=== PATIENT | male | born 1970 | race Caucasian/White ===

== ENCOUNTER → 2018-01-07 | Outpatient (CLI) | payer OTHER ==
[~2018-01-07] MED LIST: LISI-729 PO; OMEP20CA59 PO
--- NOTE | 2018-01-07 14:56 | DIAGNOSTIC IMAGING REPORT ---
SHOULDER 3 VIEWS HISTORY: Left shoulder pain COMPARISON: None. FINDINGS: There is no fracture or dislocation. The left clavicle is intact. Punctate calcification adjacent to the humeral head consistent with supraspinatus calcific tendinitis. No radiopaque foreign bodies. IMPRESSION: 1. No fracture or dislocation within the left shoulder. 2. Supraspinatus calcific tendinitis. Electronically signed by: Rob Trejo M.D. 01/07/2018 2:54 PM Dictated Date/Time: 01/07/2018 2:50 PM
== END | disposition home or self-care (01) ==
LOC: C.RAD1850 14:41
PROVIDERS: ATTEND Family Medicine
DX: M75.32 Calcific tendinitis of left shoulder (principal)

== ENCOUNTER 2024-08-09 16:02 | Inpatient (IN) ==
--- NOTE | 2024-08-09 16:06 | ED Triage Note ---
Date of Service August 09, 2024 Provider in Triage Author: Ankita Tomlinson History of Present Illness This patient was briefly evaluated while in triage. An abbreviated physical exam was performed. This patient is a 54-year-old Male who presents to the ED for evaluation hx of HTN, dyslipidemia, WPW chest pressure, sensation in throat, palpitations, dizziness started 1 hour [employer] Physical Exam GENERAL: NAD, VSS CARDIOVASCULAR: tachycardic, irregular RESPIRATORY: CTA ABDOMEN: BS x 4. Nontender to palpation. Initial orders for labs and / or imaging were placed and patient was placed in the waiting area until a bed is available. Please see further documentation for the full ED course.
[2024-08-09] MEDS: ADENOSINE IV SOLN 3 MG/ML 2 ML VIAL IV STA (16:26)
--- NOTE | 2024-08-09 16:28 | XRay Report ---
EXAM: Radiograph of the Chest 1 View INDICATION: Heart palpitations 1 hour ago. Chest pressure. TECHNIQUE: Frontal view of the chest. COMPARISON: 02/22/2024 FINDINGS: Lungs and pleural spaces: No consolidation or pulmonary edema. No pleural effusion or pneumothorax. Heart: Stable prominent cardiac shadow. Mediastinum: Normal contour. Bones/joints: No fracture, erosion or dislocation. Soft tissues: No abnormality noted. No radiopaque foreign body noted. Upper abdomen: No abnormality noted. IMPRESSION: No acute cardiopulmonary disease. ACT 112: Negative or not required by law. Electronically signed by Penny Baker 08-09-2024 4:28 PM
[2024-08-09] MEDS: SODIUM CHLORIDE 0.9% 1,000 ML IV ONE ×2 (16:30→23:19)
[2024-08-09] MEDS: ADENOSINE IV SOLN 3 MG/ML 2 ML VIAL IV ONE ×2 (16:30→16:34)
[2024-08-09 16:38] LABS: Basophils % (auto) 0.8 %; Eosinophils # (auto) 0.52 K/uL (0.00-0.50); Eosinophils % (auto) 4.1 %; Hematocrit (blood only) 48.8 % (42.0-52.0); Hemoglobin 16.9 g/dl (14.0-18.0); Immature Granulocytes # (auto) 0.04 K/uL (0.01-0.20); Immature Granulocytes % (auto) 0.3 %; Lymphocytes # (auto) 4.31 K/uL (1.20-3.40); Lymphocytes % (auto) 34.2 %; Mean Corpuscular Hemoglobin 32.3 pg (25.0-34.0); Mean Corpuscular Hgb Conc 34.6 g/dL (32.0-36.0); Mean Corpuscular Volume 93.1 fL (80.0-100.0); Mean Platelet Volume 9.7 fL (9.4-12.4); Monocytes # (auto) 1.13 K/uL (0.11-0.59); Neutrophils % (auto) 51.6 %; Platelet Count 258 K/uL (130-400); RDW Coefficient of Variation 13.4 % (11.5-14.5); RDW Standard Deviation 45.9 fL (36.4-46.3); Red Blood Count 5.24 M/uL (4.70-6.10)
[2024-08-09] MEDS: METOPROLOL TARTRATE 1 MG/ML VIAL IV ONE (16:39)
[2024-08-09] MEDS: METOPROLOL TARTRATE 1 MG/ML VIAL IV STA ×3 (16:45→16:56)
[2024-08-09] MEDS: ASPIRIN 81 MG CHEW PO STA (16:51)
[2024-08-09 16:56] LABS: Alanine Aminotransferase 40 U/L (7-52); Albumin Globulin Ratio 1.7 (0.9-2); Albumin Level 4.5 gm/dl (3.4-5.0); Alkaline Phosphatase 46 U/L (34-104); Anion Gap 10 (3-11); Aspartate Aminotransferase 25 U/L (13-39); BUN Creatinine Ratio 9.3 (10-20); Bilirubin,Total 0.6 mg/dl (0.2-1.0); Blood Urea Nitrogen 10 mg/dl (6-23); Calcium 9.1 mg/dl (8.6-10.3); Carbon Dioxide 26 mmol/L (21-32); Chloride 104 mmol/L (98-107); Globulin 2.6 gm/dl (2.5-4.0); Glucose 95 mg/dl (70-99(Fasting)); Magnesium 1.8 mg/dl (1.7-2.4); Potassium 3.7 mmol/L (3.5-5.1); Sodium 140 mmol/L (136-145); Total Protein 7.1 gm/dl (6.0-8.3)
[2024-08-09 17:02] LABS: Troponin I High Sensitivity 7.1 pg/ml (0-20)
[2024-08-09 17:11] LABS: Thyroid Stimulating Hormone 7.608 uIu/ml (0.300-4.500)
[2024-08-09 17:19] LABS: INR 0.9 (0.9-1.1); Partial Thromboplastin Time 27 Seconds (21-31); Prothrombin Time 10.3 Seconds (9.0-12.0)
[2024-08-09] MEDS: PROCAINAMIDE IV STA (17:47)
[2024-08-09] MEDS: SODIUM CHLORIDE 0.9% IV STA (17:47)
[2024-08-09 17:48] LABS: T4 Free Thyroxine 0.74 ng/dl (0.61-1.60)
[2024-08-09] MEDS: HEPARIN SODIUM/DEXTROSE 25,000 UNITS/500 ML BAG IV SCH (18:35)
--- NOTE | 2024-08-09 18:38 | History & Physical Report ---
Date of Service August 09, 2024 Assessment & Plan (1) Pre-excited atrial fibrillation: Plan: Reviewed cardiology note from [facility] 2020. Was diagnosed with WPW in 2011. Stress test did not elicit any arrhythmia the patient did not have loss of the anterograde conduction. No syncopal symptoms. Risk/benefits of ablation were discussed however patient ultimately chose to defer this. He had not had any episodes of SVT at that time. Did have some episodes of palpitations when mowing his lawn which resolved completely after he was started on metoprolol. No history of A-fib, EKG sinus at that time. Patient presents with acute wide-complex tachycardia, initial rates [id number]. In the ER was given adenosine 6 x 12 x 18 without conversion. Received metoprolol 5 mg x 3 and then was subsequently started on procainamide after consultation with cardiology history of WPW/preexcitation. Rates improved to 140s, BP improved from 8090 systolic to 217850/6080 following this. Current rhythm is A-fib with preexcitation as his underlying rhythm. He has been started on heparin GTT. He has not been anticoagulated in the past however did have abrupt onset of his symptoms which began today at 1330 hours. Troponin is normal, no chest pain chest pressure at time of hospitalist assessment Admitted to the ICU for every [id number] vital checks given multiple rate control boluses, procainamide load, and possible need for electrical cardioversion. Due to hypotension procainamide 1500mg load is being given over 150 minutes (rather than typical 75 minute load). Reviewed with cardiology. Ideally preexcitation pathway will be blocked and QRS should narrow. After load low risk of VF/VT degeneration, risk was highest with initial AV nuha block. If following procaine QRS narrows could consider additional AV nuha blocking agents at that time. After load which has been extended over 150 minutes is complete continue 2 mg/h continuous infusion. If patient does not convert or improve by morning then we will target cardioversion, n.p.o. at midnight. If patient becomes hemodynamically unstable then will need emergent electrocardioversion at that time. Appreciate recommendations Heparin GTT continued Cardiology consulted Magnesium 1.8, optimize to 2.0 magnesium x 1 given (2) WPW (Ksqrk-Gqsxuhnbe-Ybzqr syndrome): Plan: No prior history of SVT, syncope and had a normal stress test as noted above which did not elicit arrhythmia Cardiology following, see above (3) ETOH abuse: Plan: Patient drinks 6-8 beers per day. No alcohol free days in many months. Last drink 6 PM 08/08/2024 Denies history of withdrawal or seizures Is at risk of withdrawal and may have atrial arrhythmia precipitated by alcohol use Denies binge drinking in the past week AWSS protocol on admission (4) Hypertension: Plan: Valsartan, metoprolol, amlodipine held for hypotension. Resume as clinically indicated Plan DVT prophylaxis: Anticoagulated Diet: N.p.o. midnight Disposition ICU for potential cardioversion CODE STATUS: Full code History of Present Illness Primary Care Provider: Jim Cristi Hayward is a 54-year-old male with a past medical history of preexcitation/Zyrir-Gaisrzhwa-Jktgc who was evaluated but ultimately did not require ablation several years prior who presents with the acute onset of diaphoresis, palpitations, dizziness which started abruptly at approximately 1 30-1 40 5 PM this afternoon. He denies any past history of A-fib. He had some tightness/chest pressure which resolved in the ER following initial rate control. He reports that in the past week he has been in his usual state of health and before today has not had any lightheadedness, dizziness, chest pain, fever, chills, cough, shortness of breath, difficulty breathing, chest pain, chest pressure with exertion or at rest, nausea/vomiting/diarrhea, lower extremity swelling, or orthopnea. He does drink 6-8 beers per day, last alcohol free day was more than several months ago. He denies history of seizure/withdrawal, but again notes that he has not had an alcohol free day in a long time. Last drink was yesterday evening at about 6 PM. Denies recent binge drinking or drinking in excess of his usual 68 intake. He smokes 1 pack of cigarettes per day no diagnosed history of COPD and wheezes intermittently but has not had any recent wheezing. Denies to use. Denies recreational drug use. Denies sleep apnea. Full code Allergies Allergy/AdvReac Type Severity Reaction Status Date / Time naproxen Allergy Intermediate HIVES Verified 08/09/24 16:34 Home Medications Medication Instructions Recorded Confirmed Type omeprazole 20 mg capsule,delayed 20 mg PO QAM 01/21/21 08/09/24 History release amlodipine 10 mg tablet 10 mg PO QAM 11/05/22 08/09/24 History rosuvastatin 5 mg tablet 5 mg PO QAM 11/05/22 08/09/24 History metoprolol succinate 100 mg 100 mg PO QAM 08/09/24 08/09/24 History tablet,extended release 24 hr valsartan 80 mg tablet 80 mg PO QAM 08/09/24 08/09/24 History Past Med/Surg History Problem List ETOH abuse Pre-excited atrial fibrillation Hypertension Medical History Ureteral obstruction Hyperlipidemia WPW (Ljuqz-Ejuaqygvg-Iwwon syndrome) Osteoarthritis Accelerated hypertension Tobacco abuse Surgical History History of urologic surgery Family History Uncle Coronary heart disease Brother Hypertension Other Stroke Social History Smoking Status: Current every day smoker Hx Alcohol Use: No Preferred Language: [place] Hearing Ability: Normal Current Living Situation: Spouse current occupational status: employed current occupation: [employer] Feels Safe at Home: Yes Physical Exam Physical Exam: General: A&Ox3. NAD. Cooperative. HEENT: Atraumatic, normocephalic. Vision and hearing grossly intact Pulm: CTAB A&P. -wheezes, -rales, -rhonchi. Symmetrical chest rise. No increased work of breathing. No respiratory distress. Cardiac: Tachycardic, irregular. No murmur rub or gallop appreciated at time of admitting assessment. Radial pulses intact and symmetrical. Abdominal: Nontender, nondistended, soft. BS present. Extremities: Warm and dry. No edema Results & Data Results & Data Vital Signs (Past 12 Hours) Vital Signs Temp Pulse Pulse Resp BP BP Pulse Ox 08/09/24 18:21 144 H 18 94 08/09/24 18:15 126/89 08/09/24 18:15 160 H 18 96 08/09/24 18:15 136 H 20 126/89 97 12/18/24 18:03 122/64 08/09/24 18:03 157 H 18 122/64 98 08/09/24 18:03 150 H 24 08/09/24 18:00 97/66 L 08/09/24 17:57 159 H 20 97 08/09/24 17:53 165 H 20 95/79 L 95 08/09/24 17:51 157 H 20 97 08/09/24 17:45 176 H 20 95 08/09/24 17:43 104/68 08/09/24 17:36 108/79 08/09/24 17:30 166 H 16 97 08/09/24 17:24 163 H 18 95 08/09/24 17:22 110/51 L 08/09/24 17:18 172 H 17 96 08/09/24 17:16 88/56 L 08/09/24 17:12 85/40 L 08/09/24 17:06 186 H 18 93 08/09/24 17:05 185 H 08/09/24 17:00 179 H 08/09/24 17:00 187 H 18 97 08/09/24 16:54 182 H 08/09/24 16:51 88/73 L 08/09/24 16:50 170 H 08/09/24 16:45 178 H 101/73 08/09/24 16:42 98 08/09/24 16:39 178 H 19 97 08/09/24 16:39 200 H 101/73 08/09/24 16:33 98/80 L 08/09/24 16:30 180 H 13 99 08/09/24 16:26 217 H 08/09/24 16:23 136/90 08/09/24 16:21 185 H 18 98 08/09/24 16:05 36.0 C L 87 20 125/90 96 O2 Del Method 08/09/24 18:21 08/09/24 18:15 08/09/24 18:15 08/09/24 18:15 Room Air 08/09/24 18:03 08/09/24 18:03 Room Air 08/09/24 18:03 08/09/24 18:00 08/09/24 17:57 08/09/24 17:53 Room Air 08/09/24 17:51 08/09/24 17:45 08/09/24 17:43 08/09/24 17:36 08/09/24 17:30 08/09/24 17:24 08/09/24 17:22 08/09/24 17:18 08/09/24 17:16 08/09/24 17:12 08/09/24 17:06 08/09/24 17:05 08/09/24 17:00 08/09/24 17:00 08/09/24 16:54 08/09/24 16:51 08/09/24 16:50 08/09/24 16:45 08/09/24 16:42 Room Air 08/09/24 16:39 08/09/24 16:39 08/09/24 16:33 08/09/24 16:30 08/09/24 16:26 08/09/24 16:23 08/09/24 16:21 08/09/24 16:05 Room Air PG Care Time/CCT Total # of Minutes Spent Total Time Spent with Patient: Total time spent is greater than 50% in coordination of care (as documented) at patient's floor/unit and/or counseling patient: Coding Level of Care Code 81691 INT INP/OBS CARE 3/75MIN Diagnoses Pre-excited atrial fibrillation I48.91 WPW (Vnnmf-Idhplfnmk-Vqtss syndrome) I45.6 ETOH abuse F10.10 Hypertension I10
--- NOTE | 2024-08-09 18:48 | Emergency Department Note ---
Impression & Plan Pre-excited atrial fibrillation, Chest pain, Atrial fibrillation with rapid ventricular response, Mriya-Wixtknmjp-Qfzmz (WPW) pattern ED Provider Note NAME: NEAL RODAS AGE: 54 SEX: M : 1970 ARRIVES VIA: Walk-In INFORMANT: Patient ED PROVIDER(S): Yahir Herrera MD CHIEF COMPLAINT: Chest pain, palpitations/heart racing. 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 He reports feeling disoriented. The patient denies any prior history of similar episodes. He denies any history of exertional chest pain. Patient does smoke daily. He reports alcohol use on the weekends between 6-8 beers. The patient acknowledges a history of WBC W but to his understanding there was nothing to be done about it. He reports he had an echo cardiogram performed. Given that he had never had any episode of symptoms he understand that an ablation considered but deferred given he had no symptoms. Patient is on metoprolol succinate 100 mg daily. Patient denies any missed doses of his medications. He otherwise denies any recent illness including fevers, chills, cough, congestion, GI or symptoms. Of note, the patient did arrive to emergency department during time of high volume, acuity and prolonged emergency department waiting times. Critical pathways initiated from triage. Aspirin was ordered and administered. On evaluation the patient is in no acute distress, afebrile with heart rate in the 200s and wide-complex tachycardia with vital signs otherwise stable. He appears clinically dry. EKG demonstrates wide complex tachycardia with QRS of 136. Given the patient's history of similar QRS widening in 2011 with history of preexcitation/WPW suspect likely related to reentry tachycardia versus atrial fibrillation with preexcitation. Given patient is already on a beta-tito adenosine was attempted 6mg then 12mg x 2 but was unsuccessful. The patient was then given 5 mg of IV Lopressor x 3 with marginal improvement in rate to the 160s-180s. Chest x-ray negative for acute cardiopulmonary process per my preliminary independent interpretation WBC 12.6 K with out neutrophilia or left shift. H/H within normal limits. Chemistry without metabolic acidosis. Magnesium is 1.8, low normal and electrolytes otherwise unremarkable. High-sensitivity troponin 7.1, within normal limits. TSH is 7.6 with free T4 within normal limits. Blood pressure was episodically borderline though with MAPS 70-75. However the patient reported feeling improvement in his symptoms. Blood pressure gradually was more consistently improved. Patient denied feeling any lightheadedness or near syncopal symptoms. Case was discussed with Dr. Astudillo, [facility] cardiology on-call who was able to review the patient's 2012 EKG and EKGs from today. He does feel that rhythm is consistent with atrial fibrillation with preexcitation. Given the patient was now stable recommendations are for initiation of procainamide. If patient were to become hypotensive/unstable then cardioversion would be indicated. Appreciate consultation recommendations. Given new onset atrial fibrillation IV heparin was initiated. Patient denies any history of GI bleeding or bleeding otherwise. Case was discussed with Dr. Patel, [facility] hospitalist, who will evaluate the patient for admission. Further management per admitting team. Triage Nursing notes reviewed and agree them. Prior/external medical records reviewed Vital Signs: reviewed Differential diagnosis: Cardiac ischemia, aortic dissection, pulmonary embolism, pneumothorax, pneumonia, pericarditis, myocarditis, esophageal rupture, GERD, cholecystitis, pancreatitis, musculoskeletal, as well as other pathologies. ER treatment provided: See below. Diagnostics interpreted by me: ECG: Wide-complex tachycardia, 189 bpm, left bundle branch block, no sgarbossa criteria. QTc 42, QRS 136. Cardiac Monitoring: An order for continuous cardiac monitoring was placed and demonstrated Wide-complex tachycardia, suspect reentry tachycardia versus atrial fibrillation with preexcitation, 189 bpm, Laboratory studies: See below Imaging studies: See below Consultation(s): Dr. Astudillo, [facility] cardiology on-call. Dr. Patel, [facility] hospitalist. HPI: The patient is a pleasant 54-year-old gentleman with a past medical history of hypertension, hyperlipidemia, history of preexcitation/WPW seen on EKG in 2012 with QRS of 120 who presents to the emergency department via walk-in accompanied by his for evaluation of acute onset of heart racing and chest tightness that occurred approximately an hour prior to arrival. 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 He reports feeling disoriented. The patient denies any prior history of similar episodes. He denies any history of exertional chest pain. Patient does smoke daily. He reports alcohol use on the weekends between 6-8 beers. The patient acknowledges a history of WBC W but to his understanding there was nothing to be done about it. He reports he had an echo cardiogram performed. Given that he had never had any episode of symptoms he understand that an ablation considered but deferred given he had no symptoms. Patient is on metoprolol succinate 100 mg daily. Patient denies any missed doses of his medications. He otherwise denies any recent illness including fevers, chills, cough, congestion, GI or symptoms. ROS: See above HPI for pertinent positives & negatives. A total of 10 systems reviewed and were otherwise negative. VITALS:See Below PHYSICAL EXAMINATION: GENERAL: Awake, alert, in no distress HENT: Normocephalic, atraumatic. Oropharynx with dry mucous membranes and otherwise unremarkable. EYES: Normal conjunctiva. Sclera non-icteric. NECK: Supple. No nuchal rigidity. FROM. No JVD. RESPIRATORY: Clear to auscultation. CARDIAC: Tachycardic rate, irregular rhythm. Extremities warm and well perfused. Pulses equal. ABDOMEN: Soft, non-distended. No tenderness to palpation. No rebound or guarding. No masses. MUSCULOSKELETAL: Chest examination reveals no tenderness. The back is symmetrical on inspection without obvious abnormality. There is no CVA tenderness to palpation. No joint edema. LOWER EXTREMITIES: Calves are equal size bilaterally and non-tender. No edema. No discoloration. NEURO: Normal sensorium. No sensory or motor deficits noted. SKIN: No rash or jaundice noted. ED COURSE: Critical Care: I have personally spent greater than 75 minutes of critical care time in the direct management of this patient. This includes bedside care, interpretation of diagnostic studies, and testing, discussion with consultants, patient, and family members, and other required patient management activities. This 75 minutes is in excess of all separately billable procedures. Yahir Herrera MD Past Med/Surg History Problem List (Updated 12/19/24 @ 05:51 by Yahir Herrera MD) Httmg-Aqfowlsei-Edqdr (WPW) pattern (Acute) Atrial fibrillation with rapid ventricular response (Acute) Chest pain (Acute) COPD (chronic obstructive pulmonary disease) ETOH abuse Pre-excited atrial fibrillation (Acute) Hypertension Medical History Ureteral obstruction Hyperlipidemia WPW (Udxkq-Tkbniuidk-Khghh syndrome) Osteoarthritis Accelerated hypertension Tobacco abuse Surgical History History of urologic surgery Family History Uncle Coronary heart disease Brother Hypertension Other Stroke Social History Smoking Status: Current every day smoker Tobacco Type: Cigarettes Cigarettes Per Day: 1 1/2 pack per day; Hx Alcohol Use: Yes Alcohol type: beer Hx Substance Use: No Preferred Language: P[place] Communication Ability: Effective Hearing Ability: Normal Sonoscope Operator Required: No Beliefs That Will Affect Care: None Current Living Situation: Spouse current occupational status: employed current occupation: [employer] Other Information That Helps Us Care for You: No Feels Safe at Home: Yes Safety Concerns: Feels Safe At This Time Assistive Devices: Glasses Allergies Allergies Allergy/AdvReac Type Severity Reaction Status Date / Time naproxen Allergy Intermediate HIVES Verified 08/09/24 16:34 Home Meds Home Medications Medication Instructions Recorded Confirmed omeprazole 20 mg capsule,delayed 20 mg PO QAM 01/21/21 08/09/24 release amlodipine 10 mg tablet 10 mg PO QAM 11/05/22 08/09/24 rosuvastatin 5 mg tablet 5 mg PO QAM 11/05/22 08/09/24 metoprolol succinate 100 mg 100 mg PO QAM 08/09/24 08/09/24 tablet,extended release 24 hr valsartan 80 mg tablet 80 mg PO QAM 08/09/24 08/09/24 Results & Data (ED) Vital Signs Vital Signs - 24 hr 08/09/24 16:05 08/09/24 16:21 08/09/24 16:23 Temperature 36.0 C L Temperature Source Temporal Artery Scan Pulse Rate 87 185 H Pulse Rate [Apical] Pulse Rate from SpO2 Sensor 102 H Pulse Rhythm Regular Pulse Strength Normal Respiratory Rate 20 18 Respiratory Effort / Characteristics Non-Labored Spontaneous Respiratory Depth Normal Respiratory Pattern Regular Blood Pressure 125/90 136/90 Blood Pressure [Left Arm] Blood Pressure Mean 101 115 Blood Pressure Mean [Left Arm] Blood Pressure Position Sitting Blood Pressure Position [Left Arm] Pulse Oximetry 96 98 Oxygen Delivery Method Room Air Sepsis Recent Fever Within 48 Hours No Sepsis New/Unexplained Change in Mental Status No Sepsis Action Taken by Nursing No Action Required 08/09/24 16:26 08/09/24 16:30 08/09/24 16:33 Temperature Temperature Source Pulse Rate 217 H 180 H Pulse Rate [Apical] Pulse Rate from SpO2 Sensor 97 H Pulse Rhythm Pulse Strength Respiratory Rate 13 Respiratory Effort / Characteristics Respiratory Depth Respiratory Pattern Blood Pressure 98/80 L Blood Pressure [Left Arm] Blood Pressure Mean 85 Blood Pressure Mean [Left Arm] Blood Pressure Position Blood Pressure Position [Left Arm] Pulse Oximetry 99 Oxygen Delivery Method Sepsis Recent Fever Within 48 Hours Sepsis New/Unexplained Change in Mental Status Sepsis Action Taken by Nursing 08/09/24 16:39 08/09/24 16:39 08/09/24 16:42 Temperature Temperature Source Pulse Rate 200 H 178 H Pulse Rate [Apical] Pulse Rate from SpO2 Sensor 106 H Pulse Rhythm Pulse Strength Respiratory Rate 19 Respiratory Effort / Characteristics Respiratory Depth Respiratory Pattern Blood Pressure 101/73 Blood Pressure [Left Arm] Blood Pressure Mean Blood Pressure Mean [Left Arm] Blood Pressure Position Blood Pressure Position [Left Arm] Pulse Oximetry 97 98 Oxygen Delivery Method Room Air Sepsis Recent Fever Within 48 Hours Sepsis New/Unexplained Change in Mental Status Sepsis Action Taken by Nursing 08/09/24 16:45 08/09/24 16:50 08/09/24 16:51 Temperature Temperature Source Pulse Rate 178 H 170 H Pulse Rate [Apical] Pulse Rate from SpO2 Sensor Pulse Rhythm Pulse Strength Respiratory Rate Respiratory Effort / Characteristics Respiratory Depth Respiratory Pattern Blood Pressure 101/73 88/73 L Blood Pressure [Left Arm] Blood Pressure Mean 78 Blood Pressure Mean [Left Arm] Blood Pressure Position Blood Pressure Position [Left Arm] Pulse Oximetry Oxygen Delivery Method Sepsis Recent Fever Within 48 Hours Sepsis New/Unexplained Change in Mental Status Sepsis Action Taken by Nursing 08/09/24 16:54 08/09/24 17:00 08/09/24 17:00 Temperature Temperature Source Pulse Rate 182 H 187 H 179 H Pulse Rate [Apical] Pulse Rate from SpO2 Sensor Pulse Rhythm Pulse Strength Respiratory Rate 18 Respiratory Effort / Characteristics Respiratory Depth Respiratory Pattern Blood Pressure Blood Pressure [Left Arm] Blood Pressure Mean Blood Pressure Mean [Left Arm] Blood Pressure Position Blood Pressure Position [Left Arm] Pulse Oximetry 97 Oxygen Delivery Method Sepsis Recent Fever Within 48 Hours Sepsis New/Unexplained Change in Mental Status Sepsis Action Taken by Nursing 08/09/24 17:05 08/09/24 17:06 08/09/24 17:12 Temperature Temperature Source Pulse Rate 185 H 186 H Pulse Rate [Apical] Pulse Rate from SpO2 Sensor Pulse Rhythm Pulse Strength Respiratory Rate 18 Respiratory Effort / Characteristics Respiratory Depth Respiratory Pattern Blood Pressure 85/40 L Blood Pressure [Left Arm] Blood Pressure Mean 67 Blood Pressure Mean [Left Arm] Blood Pressure Position Blood Pressure Position [Left Arm] Pulse Oximetry 93 Oxygen Delivery Method Sepsis Recent Fever Within 48 Hours Sepsis New/Unexplained Change in Mental Status Sepsis Action Taken by Nursing 08/09/24 17:16 08/09/24 17:18 08/09/24 17:22 Temperature Temperature Source Pulse Rate 172 H Pulse Rate [Apical] Pulse Rate from SpO2 Sensor Pulse Rhythm Pulse Strength Respiratory Rate 17 Respiratory Effort / Characteristics Respiratory Depth Respiratory Pattern Blood Pressure 110/51 L Blood Pressure [Left Arm] 88/56 L Blood Pressure Mean 89 Blood Pressure Mean [Left Arm] 66 Blood Pressure Position Blood Pressure Position [Left Arm] Sitting Pulse Oximetry 96 Oxygen Delivery Method Sepsis Recent Fever Within 48 Hours Sepsis New/Unexplained Change in Mental Status Sepsis Action Taken by Nursing 08/09/24 17:24 08/09/24 17:30 08/09/24 17:36 Temperature Temperature Source Pulse Rate 163 H 166 H Pulse Rate [Apical] Pulse Rate from SpO2 Sensor Pulse Rhythm Pulse Strength Respiratory Rate 18 16 Respiratory Effort / Characteristics Respiratory Depth Respiratory Pattern Blood Pressure 108/79 Blood Pressure [Left Arm] Blood Pressure Mean 85 Blood Pressure Mean [Left Arm] Blood Pressure Position Blood Pressure Position [Left Arm] Pulse Oximetry 95 97 Oxygen Delivery Method Sepsis Recent Fever Within 48 Hours Sepsis New/Unexplained Change in Mental Status Sepsis Action Taken by Nursing 08/09/24 17:43 08/09/24 17:45 08/09/24 17:51 Temperature Temperature Source Pulse Rate 176 H 157 H Pulse Rate [Apical] Pulse Rate from SpO2 Sensor Pulse Rhythm Pulse Strength Respiratory Rate 20 20 Respiratory Effort / Characteristics Respiratory Depth Respiratory Pattern Blood Pressure 104/68 Blood Pressure [Left Arm] Blood Pressure Mean 86 Blood Pressure Mean [Left Arm] Blood Pressure Position Blood Pressure Position [Left Arm] Pulse Oximetry 95 97 Oxygen Delivery Method Sepsis Recent Fever Within 48 Hours Sepsis New/Unexplained Change in Mental Status Sepsis Action Taken by Nursing 08/09/24 17:53 08/09/24 17:57 08/09/24 18:00 Temperature Temperature Source Pulse Rate 159 H Pulse Rate [Apical] 165 H Pulse Rate from SpO2 Sensor 84 Pulse Rhythm Pulse Strength Respiratory Rate 20 20 Respiratory Effort / Characteristics Respiratory Depth Respiratory Pattern Blood Pressure 97/66 L Blood Pressure [Left Arm] 95/79 L Blood Pressure Mean 82 Blood Pressure Mean [Left Arm] 84 Blood Pressure Position Blood Pressure Position [Left Arm] Pulse Oximetry 95 97 Oxygen Delivery Method Room Air Sepsis Recent Fever Within 48 Hours Sepsis New/Unexplained Change in Mental Status Sepsis Action Taken by Nursing 08/09/24 18:03 08/09/24 18:03 08/09/24 18:03 Temperature Temperature Source Pulse Rate 150 H Pulse Rate [Apical] 157 H Pulse Rate from SpO2 Sensor Pulse Rhythm Pulse Strength Respiratory Rate 24 18 Respiratory Effort / Characteristics Respiratory Depth Respiratory Pattern Blood Pressure 122/64 Blood Pressure [Left Arm] 122/64 Blood Pressure Mean 68 Blood Pressure Mean [Left Arm] 83 Blood Pressure Position Blood Pressure Position [Left Arm] Pulse Oximetry 98 Oxygen Delivery Method Room Air Sepsis Recent Fever Within 48 Hours Sepsis New/Unexplained Change in Mental Status Sepsis Action Taken by Nursing 08/09/24 18:15 08/09/24 18:15 08/09/24 18:15 Temperature Temperature Source Pulse Rate 160 H Pulse Rate [Apical] 136 H Pulse Rate from SpO2 Sensor 112 H Pulse Rhythm Pulse Strength Respiratory Rate 20 18 Respiratory Effort / Characteristics Respiratory Depth Normal Respiratory Pattern Blood Pressure 126/89 Blood Pressure [Left Arm] 126/89 Blood Pressure Mean 96 Blood Pressure Mean [Left Arm] 101 Blood Pressure Position Blood Pressure Position [Left Arm] Pulse Oximetry 97 96 Oxygen Delivery Method Room Air Sepsis Recent Fever Within 48 Hours Sepsis New/Unexplained Change in Mental Status Sepsis Action Taken by Nursing 08/09/24 18:21 08/09/24 18:28 08/09/24 18:32 Temperature Temperature Source Pulse Rate 144 H Pulse Rate [Apical] 156 H 149 H Pulse Rate from SpO2 Sensor Pulse Rhythm Pulse Strength Respiratory Rate 18 20 18 Respiratory Effort / Characteristics Respiratory Depth Respiratory Pattern Blood Pressure Blood Pressure [Left Arm] 110/76 107/67 Blood Pressure Mean Blood Pressure Mean [Left Arm] 87 80 Blood Pressure Position Blood Pressure Position [Left Arm] Pulse Oximetry 94 96 96 Oxygen Delivery Method Room Air Room Air Sepsis Recent Fever Within 48 Hours Sepsis New/Unexplained Change in Mental Status Sepsis Action Taken by Nursing 08/09/24 18:32 08/09/24 18:36 08/09/24 18:39 Temperature Temperature Source Pulse Rate 146 H 147 H Pulse Rate [Apical] Pulse Rate from SpO2 Sensor 88 75 Pulse Rhythm Pulse Strength Respiratory Rate 14 18 Respiratory Effort / Characteristics Respiratory Depth Respiratory Pattern Blood Pressure 107/67 Blood Pressure [Left Arm] Blood Pressure Mean 72 Blood Pressure Mean [Left Arm] Blood Pressure Position Blood Pressure Position [Left Arm] Pulse Oximetry 95 97 Oxygen Delivery Method Sepsis Recent Fever Within 48 Hours Sepsis New/Unexplained Change in Mental Status Sepsis Action Taken by Nursing 08/09/24 18:41 08/09/24 18:41 08/09/24 18:42 Temperature Temperature Source Pulse Rate 150 H Pulse Rate [Apical] 134 H Pulse Rate from SpO2 Sensor 91 H Pulse Rhythm Pulse Strength Respiratory Rate 18 17 Respiratory Effort / Characteristics Respiratory Depth Respiratory Pattern Blood Pressure 99/70 L Blood Pressure [Left Arm] 99/70 L Blood Pressure Mean 81 Blood Pressure Mean [Left Arm] 79 Blood Pressure Position Blood Pressure Position [Left Arm] Pulse Oximetry 95 98 Oxygen Delivery Method Room Air Sepsis Recent Fever Within 48 Hours Sepsis New/Unexplained Change in Mental Status Sepsis Action Taken by Nursing 08/09/24 18:45 08/09/24 18:46 08/09/24 18:57 Temperature Temperature Source Pulse Rate 144 H Pulse Rate [Apical] 147 H Pulse Rate from SpO2 Sensor 113 H Pulse Rhythm Pulse Strength Respiratory Rate 19 20 Respiratory Effort / Characteristics Respiratory Depth Respiratory Pattern Blood Pressure 107/80 Blood Pressure [Left Arm] 114/68 Blood Pressure Mean 90 Blood Pressure Mean [Left Arm] 83 Blood Pressure Position Blood Pressure Position [Left Arm] Pulse Oximetry 97 97 Oxygen Delivery Method Room Air Sepsis Recent Fever Within 48 Hours Sepsis New/Unexplained Change in Mental Status Sepsis Action Taken by Nursing 08/09/24 19:01 08/09/24 19:06 08/09/24 19:10 Temperature Temperature Source Pulse Rate Pulse Rate [Apical] 144 H 148 H 146 H Pulse Rate from SpO2 Sensor Pulse Rhythm Pulse Strength Respiratory Rate 22 18 16 Respiratory Effort / Characteristics Non-Labored Spontaneous Non-Labored Spontaneous Respiratory Depth Normal Normal Respiratory Pattern Regular Regular Blood Pressure Blood Pressure [Left Arm] 83/62 L 103/64 96/69 L Blood Pressure Mean Blood Pressure Mean [Left Arm] 69 77 78 Blood Pressure Position Blood Pressure Position [Left Arm] Lying Sitting Sitting Pulse Oximetry 98 96 97 Oxygen Delivery Method Room Air Room Air Room Air Sepsis Recent Fever Within 48 Hours Sepsis New/Unexplained Change in Mental Status Sepsis Action Taken by Nursing 08/09/24 19:15 08/09/24 19:21 08/09/24 19:26 Temperature Temperature Source Pulse Rate Pulse Rate [Apical] 151 H 152 H 140 H Pulse Rate from SpO2 Sensor Pulse Rhythm Pulse Strength Respiratory Rate 16 15 16 Respiratory Effort / Characteristics Non-Labored Spontaneous Non-Labored Spontaneous Respiratory Depth Normal Normal Respiratory Pattern Regular Regular Blood Pressure Blood Pressure [Left Arm] 101/81 112/81 87/62 L Blood Pressure Mean Blood Pressure Mean [Left Arm] 87 91 70 Blood Pressure Position Blood Pressure Position [Left Arm] Sitting Sitting Semi-fowlers Pulse Oximetry 96 96 97 Oxygen Delivery Method Room Air Room Air Room Air Sepsis Recent Fever Within 48 Hours Sepsis New/Unexplained Change in Mental Status Sepsis Action Taken by Nursing 08/09/24 19:31 08/09/24 19:36 08/09/24 19:43 Temperature Temperature Source Pulse Rate Pulse Rate [Apical] 129 H 139 H 149 H Pulse Rate from SpO2 Sensor Pulse Rhythm Pulse Strength Respiratory Rate 15 16 19 Respiratory Effort / Characteristics Non-Labored Spontaneous Non-Labored Spontaneous Non-Labored Spontaneous Respiratory Depth Normal Normal Normal Respiratory Pattern Regular Regular Regular Blood Pressure Blood Pressure [Left Arm] 95/62 L 100/80 90/67 L Blood Pressure Mean Blood Pressure Mean [Left Arm] 73 86 74 Blood Pressure Position Blood Pressure Position [Left Arm] Lying Semi-fowlers Semi-fowlers Pulse Oximetry 98 97 95 Oxygen Delivery Method Room Air Room Air Room Air Sepsis Recent Fever Within 48 Hours Sepsis New/Unexplained Change in Mental Status Sepsis Action Taken by Nursing 08/09/24 19:45 Temperature Temperature Source Pulse Rate Pulse Rate [Apical] 143 H Pulse Rate from SpO2 Sensor Pulse Rhythm Pulse Strength Respiratory Rate 18 Respiratory Effort / Characteristics Non-Labored Spontaneous Respiratory Depth Normal Respiratory Pattern Regular Blood Pressure Blood Pressure [Left Arm] 112/76 Blood Pressure Mean Blood Pressure Mean [Left Arm] 88 Blood Pressure Position Blood Pressure Position [Left Arm] Semi-fowlers Pulse Oximetry 96 Oxygen Delivery Method Room Air Sepsis Recent Fever Within 48 Hours Sepsis New/Unexplained Change in Mental Status Sepsis Action Taken by Nursing Laboratory Data Attestation: I reviewed the patient's lab results. 08/10/24 03:52 08/10/24 03:52 Lab Results 08/09/24 Range/Units 16:15 WBC 12.60 H (4.8-10.8) K/ul RBC 5.24 (4.70-6.10) M/uL Hgb 16.9 (14.0-18.0) g/dl Hct 48.8 (42.0-52.0) % MCV 93.1 (80.0-100.0) fL MCH 32.3 (25.0-34.0) pg MCHC 34.6 (32.0-36.0) g/dL RDW Std Deviation 45.9 (36.4-46.3) fL RDW Coeff of César 13.4 (11.5-14.5) % Plt Count 258 (130-400) K/uL MPV 9.7 (9.4-12.4) fL Immature Gran % (Auto) 0.3 % Neut % (Auto) 51.6 % Lymph % (Auto) 34.2 % Pratt % (Auto) 9.0 % Eos % (Auto) 4.1 % Baso % (Auto) 0.8 % Neut # (Auto) 6.50 (1.40-6.50) K/uL Lymph # (Auto) 4.31 H (1.20-3.40) K/uL Pratt # (Auto) 1.13 H (0.11-0.59) K/uL Eos # (Auto) 0.52 H (0.00-0.50) K/uL Baso # (Auto) 0.10 (0.00-0.20) K/uL Immature Gran # (Auto) 0.04 (0.01-0.20) K/uL PT 10.3 (9.0-12.0) Seconds INR 0.9 (0.9-1.1) APTT 27 (21-31) Seconds PTT Ratio 1.0 Sodium 140 (136-145) mmol/L Potassium 3.7 (3.5-5.1) mmol/L Chloride 104 (98-107) mmol/L Carbon Dioxide 26 (21-32) mmol/L Anion Gap 10 (3-11) BUN 10 (6-23) mg/dl Creatinine 1.07 (0.6-1.4) mg/dl Est Cr Clr Drug Dosing Not Reportable eGFR 81.95 BUN/Creatinine Ratio 9.3 L (10-20) Glucose 95 (70-99(Fasting)) mg/dl Calcium 9.1 (8.6-10.3) mg/dl Magnesium 1.8 (1.7-2.4) mg/dl Total Bilirubin 0.6 (0.2-1.0) mg/dl AST 25 (13-39) U/L ALT 40 (7-52) U/L Alkaline Phosphatase 46 (34-104) U/L Troponin I High Sens 7.1 (0-20) pg/ml Total Protein 7.1 (6.0-8.3) gm/dl Albumin 4.5 (3.4-5.0) gm/dl Globulin 2.6 (2.5-4.0) gm/dl Albumin/Globulin Ratio 1.7 (0.9-2) TSH 7.608 H (0.300-4.500) uIu/ml Free T4 0.74 (0.61-1.60) ng/dl Administered Medications Heparin Sodium/Dextrose (Heparin Sodium/Dextrose) 25,000 units in 500 mls @ 35 mls/hr IV .[id number] [facility]; Protocol Stop: 09/08/24 17:59 Last Titration: 08/10/24 01:08 Dose: 1,750 units/hr, 35 mls/hr Documented By: CLC Co-signed By: MILO Admin: 08/09/24 18:35 Dose: 1,750 units/hr, 35 mls/hr Documented By: DS Co-signed By: Thiamine HCl 100 mg/ Syringe 10 mls @ 2 [facility] Stop: 09/08/24 18:59 Last Admin: 08/09/24 20:04 Dose: 2 mls/min Documented By: Folic Acid 1 mg/ Syringe 10 mls @ 5 m[facility] Stop: 09/08/24 18:59 Last Admin: 08/09/24 20:04 Dose: 5 mls/min Documented By: Procainamide HCl 1,000 mg/ (Sodium Chloride) 250 mls @ 30 mls/hr IV .Q8H20M LISA; Protocol Stop: 09/08/24 20:29 Last Admin: 08/10/24 05:07 Dose: 2 mg/min, 30 mls/hr Documented By: Infusion: 08/10/24 04:49 Dose: Infused Documented By: Admin: 08/09/24 20:29 Dose: 2 mg/min, 30 mls/hr Documented By: Miscellaneous (Icu Protocol For Hyperglycemia) 1 each N/A ACHS LISA Stop: 08/11/24 21:01 Last Admin: 08/09/24 21:54 Dose: 1 each Documented By: CLC Discontinued Medications Adenosine (Adenosine Iv Soln 3 Mg/Ml 2 Ml Vial) Confirm Administered Dose 18 mg IV .STK-MED ONE Stop: 08/09/24 16:24 Last Admin: 08/09/24 16:30 Dose: 12 mg Documented By: TOMMY Adenosine (Adenosine Iv Soln 3 Mg/Ml 2 Ml Vial) Confirm Administered Dose 12 mg IV .STK-MED ONE Stop: 08/09/24 16:33 Last Admin: 08/09/24 16:34 Dose: 12 mg Documented By: TOMMY Adenosine (Adenosine Iv Soln 3 Mg/Ml 2 Ml Vial) 6 mg IV NOW STA Stop: 08/09/24 16:56 Last Admin: 08/09/24 16:26 Dose: 6 mg Documented By: TOMMY Aspirin (Aspirin 81 Mg Chew) 324 mg PO NOW STA Stop: 08/09/24 16:07 Last Admin: 08/09/24 16:51 Dose: 324 mg Documented By: TOMMY Heparin Sodium/Dextrose (Heparin Iv Adult Wt-Based Standard *No* Initial Bolus Protocol) 1 each IV ONE STA; Protocol Stop: 08/09/24 17:33 Last Admin: 08/09/24 20:02 Dose: Not Given Documented By: Sodium Chloride (Nss) 1,000 mls @ 999 mls/hr IV .Q1H1M ONE Stop: 08/09/24 17:26 Last Infusion: 08/09/24 17:22 Dose: Infused Documented By: Admin: 08/09/24 16:30 Dose: 999 mls/hr Documented By: TOMMY Procainamide HCl 1,500 mg/ (Sodium Chloride) 265 mls @ 212 mls/hr IV NOW STA; Protocol Stop: 08/09/24 18:42 Last Infusion: 08/09/24 20:33 Dose: Infused Documented By: Admin: 08/09/24 17:47 Dose: 106 mls/hr Documented By: TOMMY Potassium Chloride (K Rudolph / Wtr) 10 meq in 100 mls @ 100 mls/hr IV Q1H LISA Stop: 08/10/24 00:29 Last Infusion: 08/10/24 02:28 Dose: Infused Documented By: Admin: 08/10/24 00:13 Dose: 100 mls/hr Documented By: Infusion: 08/10/24 00:13 Dose: Infused Documented By: Admin: 08/09/24 23:19 Dose: 100 mls/hr Documented By: CLC Magnesium Sulfate/Dextrose (Magnesium Sulfate / D5w) 1 gm in 100 mls @ 50 mls/hr IV Q2H LISA Stop: 08/10/24 02:29 Last Infusion: 08/10/24 03:04 Dose: Infused Documented By: Admin: 08/10/24 01:04 Dose: 50 mls/hr Documented By: Infusion: 08/10/24 01:04 Dose: Infused Documented By: Admin: 08/09/24 23:19 Dose: 50 mls/hr Documented By: CLC Sodium Chloride (Nss) 1,000 mls @ 999 mls/hr IV .Q1H1M ONE Stop: 08/10/24 00:01 Last Infusion: 08/10/24 01:06 Dose: Infused Documented By: Admin: 08/09/24 23:19 Dose: 999 mls/hr Documented By: LUTHER Magnesium Oxide (Magnesium Oxide 400 Mg Tab) 400 mg PO ONE ONE Stop: 08/09/24 21:03 Last Admin: 08/09/24 21:54 Dose: 400 mg Documented By: LUTHER Metoprolol Tartrate (Metoprolol Tartrate 1 Mg/Ml Vial) Confirm Administered Dose 5 mg IV .STK-MED ONE Stop: 08/09/24 16:38 Last Admin: 08/09/24 16:39 Dose: 5 mg Documented By: TOMMY Metoprolol Tartrate (Metoprolol Tartrate 1 Mg/Ml Vial) 5 mg IV NOW STA Stop: 08/09/24 16:38 Last Admin: 08/09/24 16:45 Dose: 5 mg Documented By: TOMMY Metoprolol Tartrate (Metoprolol Tartrate 1 Mg/Ml Vial) 5 mg IV NOW STA Stop: 08/09/24 16:44 Last Admin: 08/09/24 16:50 Dose: 5 mg Documented By: TOMMY Metoprolol Tartrate (Metoprolol Tartrate 1 Mg/Ml Vial) 5 mg IV NOW STA Stop: 08/09/24 16:50 Last Admin: 08/09/24 16:56 Dose: Not Given Documented By: TOMMY Imaging Data Radiologist's Impression: Chest X-Ray 08/09/24 16:06 EXAM: Radiograph of the Chest 1 View INDICATION: Heart palpitations 1 hour ago. Chest pressure. TECHNIQUE: Frontal view of the chest. COMPARISON: 02/22/2024 FINDINGS: Lungs and pleural spaces: No consolidation or pulmonary edema. No pleural effusion or pneumothorax. Heart: Stable prominent cardiac shadow. Mediastinum: Normal contour. Bones/joints: No fracture, erosion or dislocation. Soft tissues: No abnormality noted. No radiopaque foreign body noted. Upper abdomen: No abnormality noted. IMPRESSION: No acute cardiopulmonary disease. ACT 112: Negative or not required by law. Electronically signed by Penny Baker 08-09-2024 4:28 PM Discharge Plan Visit Data Chief Complaint: Cardiac Assessment Stated Complaint: CHEST PAIN, SOB, DIZZY, HEADACHE ED Provider: Yahir Herrera Discharge Problem: Pre-excited atrial fibrillation, Chest pain, Atrial fibrillation with rapid ventricular response, Hulqk-Jfdkpofka-Ifujn (WPW) pattern Patient Disposition: Admitted As Inpatient Discharge Instructions Interventions: ED Discharge Assessment Last Done: 08/09/24 20:58 Discharge Problem: Chest pain Qualifiers: Chest pain type: unspecified Qualified Code(s): R07.9 - Chest pain, unspecified
[2024-08-09] MEDS ORDERED: LORazepam 2 MG/1 ML VIAL IV PRN ×3 (18:53)
[2024-08-09] MEDS ORDERED: Ativan IV Alcohol Withdrawal--Active Protocol IV PRN (18:53)
[2024-08-09] MEDS: Heparin IV Adult Wt-Based Standard *NO* INITIAL Bolus Protocol IV STA (20:02)
[2024-08-09] MEDS: THIAMINE HCL 100 MG in SYRINGE 9 ML IV SCH (20:04)
[2024-08-09] MEDS: FOLIC ACID 1 MG in SYRINGE 9.8 ML IV SCH (20:04)
[2024-08-09] MEDS: PROCAINAMIDE 1,000 MG in SODIUM CHLORIDE 0.9% 240 ML IV SCH (20:29)
[2024-08-09] MEDS: ICU Protocol for HYPERglycemia SCH (21:54)
[2024-08-09] MEDS: MAGNESIUM OXIDE 400 MG TAB PO ONE (21:54)
--- NOTE | 2024-08-09 22:09 | Critical Care Consultation ---
Date of Consultation August 09, 2024 Assessment & Plan (1) Pre-excited atrial fibrillation: Impression: 54-year-old male with past medical history significant for Ehvyr-Prhfxetmd-Tdgcm syndrome, HTN, EtOH abuse, and likely undiagnosed COPD with 30-year history of cigarette smoking, now presents to the ICU with preexcited atrial fibrillation, now on procainamide drip. Cardiology recommendations to admit to ICU, if patient does not medically convert will likely undergo cardioversion tomorrow. Neuro - CAM ICU: Negative EtOH abusepatient reports drinking 6-8 beers per day and is unsure of the last time he went without alcohol for a whole day. There are no current symptoms of alcohol withdrawal at this time. - SINA S scale -Lorazepam as needed - Continue thiamine, folic acid Cardiac - Atrial fibrillation/Htefm-Cjeuvzzjd-Ffwdy syndrome Patient noted to have wide- complex tachycardia with heart rate 160s to 180s on arrival to emergency department. EKG revealing A-fib RVR with premature ventricular to complexes. QRS 154. - No prior known history of atrial fibrillation - Initially received adenosine and metoprolol without improvement in rate. Currently on procainamide drip And admitted to ICU per cardiology recommendations -Remains in A-fib with improvement of rate into the 140s - Started on heparin drip - Per conversation with primary team, plan to admit to ICU continue procainamide drip in hopes that patient medically converts, however if patient were to decompensate or remain in rhythm tomorrow will likely Require cardioversion HTNantihypertensives currently on hold as patient is currently on procainamide drip. Currently normotensive with soft/low normal pressures. Monitor closely Respiratory - COPD?Patient denies official diagnosis, but has a long standing history of cigarette smoke with 1 PPD x 30 years. Lungs wheezing on exam and patient reports this is his baseline with a chronic cough "due to cigarette smoking" - Appears to be stable at this time. No labored breathing. Will continue to monitor for now - Will likely need PFTs and outpatient -Continuous monitoring pulse ox GI - N.p.o. at midnight RENAL/LYTES - Creatinine within normal limits. Monitor routine BMPs and replete electrolytes as indicated - Strict I's and O's ENDO - No history of diabetes or thyroid disease. ICU hyperglycemic protocol HEME - H&H stable, monitor routine CBC ID - Indication for infectious process at this time LINES/IV ACCESS - Peripheral IVs DVT PROPHYLAXIS - SCDs, heparin drip Thank you for allowing us to participate in the care of this patient. Please refer to my attending physician's documentation for any further recommendations. (2) Hypertension: (3) ETOH abuse: (4) COPD (chronic obstructive pulmonary disease): (5) WPW (Ijmpj-Enbguqbbx-Hadrw syndrome): Supervising Physician Co-Signing Physician Notes Patient seen and examined. EMR reviewed. Discussed with ER staff as well as overnight critical care DIANE. Agree with assessment plan as noted. Please per my progress note from 08/10/2024 for additional details. History of Present Illness Attending Physician: Nikko Patel MD History of Present Illness Patient is a 54-year-old male with past medical history of HTN, EtOH abuse, smoker (1 PPD x 30 years), Vazquez Parkinson White syndrome, who presented to the emergency department earlier this afternoon With complaints of chest pressure/palpitations. On arrival to the emergency department patient was noted to have wide-complex tachycardia with heart rate in the 180s to 200s and was given adenosine without successful conversion. Patient also received metoprolol 5 mg x 3. Cardiology consulted and patient was started on procainamide drip with improvement in rates but remains in wide-complex tachycardia. He was also started on heparin drip. He is now being admitted to ICU for close monitoring/further management per cardiology recommendations. On arrival to the ICU the patient is alert and oriented and hemodynamically stable, with heart rate in the 140s to 150s and continues to be wide- complex irregular tachycardia. Despite this he is currently asymptomatic. He is maintaining oxygen saturation on room air. He denies any recent illness or fevers, syncopal events, headache or dizziness, changes in vision. He denies current chest pain, shortness of breath, abdominal pain, nausea vomiting or diarrhea, changes in urine frequency, swelling in hands or feet, or changes in gait. He does report shortness of breath and some wheezing at night when he lays down. Allergies Allergy/AdvReac Type Severity Reaction Status Date / Time naproxen Allergy Intermediate HIVES Verified 08/09/24 16:34 Home Medications Medication Instructions Recorded Confirmed Type omeprazole 20 mg capsule,delayed 20 mg PO QAM 01/21/21 08/09/24 History release amlodipine 10 mg tablet 10 mg PO QAM 11/05/22 08/09/24 History rosuvastatin 5 mg tablet 5 mg PO QAM 11/05/22 08/09/24 History metoprolol succinate 100 mg 100 mg PO QAM 08/09/24 08/09/24 History tablet,extended release 24 hr valsartan 80 mg tablet 80 mg PO QAM 08/09/24 08/09/24 History Patient History Medical History Ureteral obstruction Hyperlipidemia WPW (Gxjwr-Ubydsbrig-Tcjhp syndrome) Osteoarthritis Accelerated hypertension Tobacco abuse Surgical History History of urologic surgery Family History Uncle Coronary heart disease Brother Hypertension Other Stroke Social History Smoking Status: Current every day smoker Tobacco Type: Cigarettes Cigarettes Per Day: 1 1/2 pack per day; Hx Alcohol Use: Yes Alcohol type: beer Hx Substance Use: No Preferred Language: Mosotho Communication Ability: Effective Hearing Ability: Normal Building Specialist Required: No Beliefs That Will Affect Care: None Current Living Situation: Spouse current occupational status: employed current occupation: [employer] Other Information That Helps Us Care for You: No Feels Safe at Home: Yes Safety Concerns: Feels Safe At This Time Assistive Devices: Glasses Review of Systems Review of Systems: All systems reviewed & are unremarkable except as noted in HPI & below Physical Exam Constitutional: + obese, cooperative and comfortable Eyes: PERRL, conjunctivae normal, anicteric sclerae ENMT: external ear and nose normal, oropharynx normal Neck: trachea midline, no thyromegaly Respiratory: Symmetrical chest wall movement, nonlabored breathing. Expiratory wheeze noted bilaterally. Cardiovascular: Irregular rate, tachycardic, no murmur. No JVD, no edema Gastrointestinal (Abdomen): Abdomen round, semifirm, nontender. Normal bowel sounds Musculoskeletal: no cyanosis or clubbing, extremities motor strength 5/5 Skin: no rashes, warm and dry Neurologic: PERRL, EOMI, accommodation nl, no face palsy, no dysarthria Psychiatric: A+Ox3, euthymic affect Results & Data Results & Data Vital Signs (Past 12 Hours) Vital Signs Temp Pulse Pulse Resp BP BP Pulse Ox 08/09/24 21:01 91/72 L 08/09/24 21:00 140 H 19 97 08/09/24 20:58 08/09/24 20:56 104/82 08/09/24 20:56 104/82 08/09/24 20:54 148 H 17 94 08/09/24 20:51 86/71 L 08/09/24 20:46 141 H 16 97/64 L 96 08/09/24 20:41 99/70 L 08/09/24 20:39 139 H 08/09/24 20:36 137 H 16 117/69 98 08/09/24 20:31 144 H 16 96/73 L 97 08/09/24 20:27 141 H 15 121/73 96 08/09/24 20:21 140 H 17 101/80 95 08/09/24 20:16 132 H 18 93/61 L 96 08/09/24 20:11 125 H 16 115/66 96 08/09/24 20:06 150 H 16 97/63 L 96 08/09/24 20:00 147 H 16 96/77 L 96 08/09/24 19:55 125 H 16 105/82 96 08/09/24 19:53 138 H 17 121/64 97 08/09/24 19:45 143 H 18 112/76 96 08/09/24 19:43 149 H 19 90/67 L 95 08/09/24 19:36 139 H 16 100/80 97 08/09/24 19:31 129 H 15 95/62 L 98 08/09/24 19:26 140 H 16 87/62 L 97 08/09/24 19:21 152 H 15 112/81 96 08/09/24 19:15 151 H 16 101/81 96 08/09/24 19:10 146 H 16 96/69 L 97 08/09/24 19:06 148 H 18 103/64 96 08/09/24 19:01 144 H 22 83/62 L 98 08/09/24 18:57 147 H 20 114/68 97 08/09/24 18:46 107/80 08/09/24 18:45 144 H 19 97 08/09/24 18:42 150 H 17 98 12/18/24 18:41 99/70 L 08/09/24 18:41 134 H 18 99/70 L 95 24 18:39 147 H 18 97 08/09/24 18:36 146 H 14 95 08/09/24 18:32 107/67 08/09/24 18:32 149 H 18 107/67 96 08/09/24 18:28 156 H 20 110/76 96 08/09/24 18:21 144 H 18 94 08/09/24 18:15 126/89 08/09/24 18:15 160 H 18 96 08/09/24 18:15 136 H 20 126/89 97 08/09/24 18:03 122/64 08/09/24 18:03 157 H 18 122/64 98 08/09/24 18:03 150 H 24 08/09/24 18:00 97/66 L 08/09/24 17:57 159 H 20 97 08/09/24 17:53 165 H 20 95/79 L 95 08/09/24 17:51 157 H 20 97 08/09/24 17:45 176 H 20 95 08/09/24 17:43 104/68 08/09/24 17:36 108/79 08/09/24 17:30 166 H 16 97 08/09/24 17:24 163 H 18 95 08/09/24 17:22 110/51 L 08/09/24 17:18 172 H 17 96 08/09/24 17:16 88/56 L 08/09/24 17:12 85/40 L 08/09/24 17:06 186 H 18 93 08/09/24 17:05 185 H 08/09/24 17:00 179 H 08/09/24 17:00 187 H 18 97 08/09/24 16:54 182 H 08/09/24 16:51 88/73 L 08/09/24 16:50 170 H 24 16:45 178 H 101/73 24 16:42 98 08/09/24 16:39 178 H 19 97 24 16:39 200 H 101/73 24 16:33 98/80 L 08/09/24 16:30 180 H 13 99 08/09/24 16:26 217 H 08/09/24 16:23 136/90 08/09/24 16:21 185 H 18 98 08/09/24 16:05 36.0 C L 87 20 125/90 96 O2 Del Method 08/09/24 21:01 08/09/24 21:00 Room Air 08/09/24 20:58 Room Air 08/09/24 20:56 08/09/24 20:56 08/09/24 20:54 08/09/24 20:51 08/09/24 20:46 Room Air 08/09/24 20:41 08/09/24 20:39 08/09/24 20:36 Room Air 08/09/24 20:31 Room Air 08/09/24 20:27 Room Air 08/09/24 20:21 Room Air 08/09/24 20:16 Room Air 08/09/24 20:11 Room Air 08/09/24 20:06 Room Air 08/09/24 20:00 Room Air 08/09/24 19:55 Room Air 08/09/24 19:53 Room Air 08/09/24 19:45 Room Air 08/09/24 19:43 Room Air 08/09/24 19:36 Room Air 08/09/24 19:31 Room Air 08/09/24 19:26 Room Air 08/09/24 19:21 Room Air 08/09/24 19:15 Room Air 08/09/24 19:10 Room Air 08/09/24 19:06 Room Air 08/09/24 19:01 Room Air 08/09/24 18:57 Room Air 08/09/24 18:46 08/09/24 18:45 08/09/24 18:42 08/09/24 18:41 08/09/24 18:41 Room Air 08/09/24 18:39 08/09/24 18:36 08/09/24 18:32 08/09/24 18:32 Room Air 08/09/24 18:28 Room Air 08/09/24 18:21 08/09/24 18:15 08/09/24 18:15 08/09/24 18:15 Room Air 08/09/24 18:03 08/09/24 18:03 Room Air 08/09/24 18:03 08/09/24 18:00 08/09/24 17:57 08/09/24 17:53 Room Air 08/09/24 17:51 08/09/24 17:45 08/09/24 17:43 08/09/24 17:36 08/09/24 17:30 08/09/24 17:24 08/09/24 17:22 08/09/24 17:18 08/09/24 17:16 08/09/24 17:12 08/09/24 17:06 08/09/24 17:05 08/09/24 17:00 08/09/24 17:00 08/09/24 16:54 08/09/24 16:51 08/09/24 16:50 08/09/24 16:45 08/09/24 16:42 Room Air 08/09/24 16:39 08/09/24 16:39 08/09/24 16:33 08/09/24 16:30 08/09/24 16:26 08/09/24 16:23 08/09/24 16:21 08/09/24 16:05 Room Air Coding Level of Care Code 40445 IN/OBS CONSULT LVL 4,60M Diagnoses Pre-excited atrial fibrillation I48.91 Hypertension I10 ETOH abuse F10.10 COPD (chronic obstructive pulmonary disease) J44.9 WPW (Cjqon-Xjgjdgeui-Torxs syndrome) I45.6 Time Spent (min) 50
[2024-08-09] MEDS: POTASSIUM CHLORIDE / WTR 10 MEQ/100 ML PLCT IV SCH (23:19)
[2024-08-09] MEDS: MAGNESIUM SULFATE / D5W 1 GM/100 ML BAG IV SCH (23:19)
[2024-08-09 23:50] VITALS: TEMP 97.7
[2024-08-10 01:04] LABS: ANTI-Xa, UFH(UnfractionatedHep 0.42 IU/ml (0.3-0.7)
[2024-08-10 04:20] LABS: Basophils # (auto) 0.07 K/uL (0.00-0.20); Basophils % (auto) 0.8 %; Eosinophils # (auto) 0.44 K/uL (0.00-0.50); Eosinophils % (auto) 4.7 %; Hematocrit (blood only) 41.6 % (42.0-52.0); Immature Granulocytes # (auto) 0.04 K/uL (0.01-0.20); Immature Granulocytes % (auto) 0.4 %; Lymphocytes # (auto) 3.65 K/uL (1.20-3.40); Lymphocytes % (auto) 39.3 %; Mean Corpuscular Hemoglobin 31.8 pg (25.0-34.0); Mean Corpuscular Hgb Conc 33.7 g/dL (32.0-36.0); Mean Corpuscular Volume 94.5 fL (80.0-100.0); Mean Platelet Volume 9.9 fL (9.4-12.4); Monocytes # (auto) 0.69 K/uL (0.11-0.59); Monocytes % (auto) 7.4 %; Neutrophils # (auto) 4.39 K/uL (1.40-6.50); Neutrophils % (auto) 47.4 %; Platelet Count 207 K/uL (130-400); RDW Coefficient of Variation 13.5 % (11.5-14.5); RDW Standard Deviation 47.3 fL (36.4-46.3); White Blood Count 9.28 K/ul (4.8-10.8)
[2024-08-10 04:33] LABS: Calcium 8.2 mg/dl (8.6-10.3); Creatinine Clr Calc Pharmacy 125.2 ml/min; Magnesium 2.3 mg/dl (1.7-2.4); Phosphorus 3.2 mg/dl (2.5-4.9); Potassium 3.9 mmol/L (3.5-5.1)
[2024-08-10 04:43] LABS: ANTI-Xa, UFH(UnfractionatedHep 0.48 IU/ml (0.3-0.7)
[2024-08-10] MEDS: POTASSIUM CHLORIDE / WTR 10 MEQ/100 ML PLCT IV SCH (06:36)
--- OUTSIDE RECORDS SUMMARY | 2024-08-10 08:21 | External Medical Summary | Continuity of Care Document ---
Author Name Unknown Organization [id number] Address [address] [place] [id number] Care Team Providers Care Boilermaker Pipe Fitter Name Role Phone Jim Colin Primary Care Physician [phone] Encounter [facility] [id number] Date(s): 04/05/24 - 04/05/24 [facility] [address] [place] [address] Encounter Diagnosis Arthritis of both subtalar joints(Discharge Diagnosis) - 04/05/24 Discharge Disposition: Home or Self Care Attending Physician: MD Andrade Jesse Referring Physician: SHARIF Villa Christina L Allergies, Adverse Reactions, Alerts Substance Criticality Severity Reaction Reaction Severity Status losartan cough Active Aleve hives Active Immunizations Given and Recorded Vaccine Date Status Refusal Reason tetanus/diphtheria/pertuss, acel (Tdap) 04/03/16 G iven Medications amLODIPine 10 mg oral tablet Start: 11/29/23 2:32:00 PM EDT, 1 tab, PO, Daily, Disp# 90 tab, X 90 day, Refills: 3, Stop: 11/23/24 2:32:00 PM EDT, Pharmacy: [facility] Start Date: 11/29/23 Stop Date: 11/23/24 Status: Ordered Crestor 5 mg oral tablet Start: 11/29/23 2:32:00 PM EDT, 1 tab, PO, qhs, Disp# 90 tab, Refills: 3, Pharmacy: [facility] Start Date: 11/29/23 Stop Date: 11/23/24 Status: Ordered Metoprolol Succinate ER 100 mg oral tablet, extended release Start: 11/29/23 2:32:00 PM EDT, 1 tab, PO, Daily, Disp# 90 tab, Refills: 3, Pharmacy: [facility] Start Date: 11/29/23 Stop Date: 11/23/24 Status: Ordered omeprazole 20 mg oral delayed release capsule Start: 11/29/23 2:32:00 PM EDT, 1 cap, PO, Daily, Disp# 90 cap, Refills: 3, Pharmacy: [facility] Start Date: 11/29/23 Status: Ordered valsartan 80 mg oral tablet Start: 11/29/23 2:33:00 PM EDT, 1 tab, PO, Daily, Disp# 90 tab, Refills: 3, Pharmacy: [facility] Start Date: 11/29/23 Stop Date: 11/23/24 Status: Ordered Problem List Condition Confirmation Course Effective Dates Status Health St atus Informant Arthritis of both feet Confirmed Active Arthritis of both subtalar joints Confirmed Active Calcific tendinitis Confirmed Active Pain in both feet Confirmed Active GERD Confirmed Active HBP (high blood pressure) Confirmed Active Hyperlipemia Confirmed Active LFT elevation Confirmed Active Neck pain Confirmed Active Cigarette nicotine dependence Confirmed Active Shoulder pain Confirmed Active Smoker Confirmed Active Snores Confirmed Active Pes planus of both feet Confirmed Active Weight disorder Confirmed Active Gddzi-Tseakkson-Bes te (WPW) syndrome Confirmed Active Diagnosis Diagnosis Type Effective Dates Health Status Cl inical Service Informant Arthritis of both subtalar joints Discharge Diagnosis 04/05/24 Non-Specified Procedures Procedure Date Related Diagnosis Body Site Status Low dose CT of chest without contrast 1 02/18/23 Completed Chest x-ray 2 08/03/19 Completed Kidney 3 1983 Completed Appendectomy Completed Extraction of wisdom tooth Completed 1IMPRESSION: Tiny pulmonary nodule in the left lower lobe. Otherwise unremarkable. 2No active disease in the chest 3right. Social History Social History Type Response Tobacco Cigarettes, 2 per da y. Started age 11 Years. Smoking Status Never smoked cigaret josie Sex Male Sex Representation Male (finding) Patient Care team information Care Team Personnel Name: MD Colin Dongsheng Position: Physician - Family Med Member Role: Primary Care Provider [address]: [address] [place] [address] Care Team Related Persons Name: JOSE ENRIQUE RODAS Name: JOSE ENRIQUE RODAS
--- OUTSIDE RECORDS SUMMARY | 2024-08-10 08:21 | External Medical Summary | Continuity of Care Document ---
Author Name Unknown Organization [facility] [address] [place] [id number] Address [address] [place] [phone] Care Team Providers Care Financial Services Representative Name Role Phone Jim Colin Primary Care Physician [phone] [facility] [id number] Date(s): 03/09/24 - 03/09/24 [facility] 0 [address] [facility] [address] [facility] [address] [place] [address] Encounter Diagnosis Pain in both feet(Discharge Diagnosis) - 03/09/24 Arthritis of both feet(Discharge Diagnosis) - 03/09/24 Pes planus of both feet(Discharge Diagnosis) - 03/09/24 Arthritis of both subtalar joints(Discharge Diagnosis) - 03/09/24 Discharge Disposition: Home or Self Care Attending Physician: SHARIF Villa Christina L Allergies, Adverse Reactions, Alerts Substance Criticality Severity Reaction Reaction Severity Status losartan cough Active Aleve hives Active Assessment and Plan Extracted from: Title:Orthopaedics Office Visit Note Author:Duane Douglas DPM, Christina L Date:03/09/24 1.Pain in both feet Discussed with patient that I do feel he shouldrespond positivelywith orthotics since his current pair are about 5 years old may be olderplaced an order and consult for patient to see [facility], he wearssolo orthotics and [facility] provide [facility] they have been successful in helping his foot pain in the past recommend to continue just needs an updated pair. Recommend ultrasound-guided injection for bilateral sinus tarsi syndrome ordered today. Recommended compression hose for some mild lower extremity nonpitting edemarecommend that these be between 10 and 20 mmHg. Recommend for patient to continue supportive shoe gear. Reviewed stretching exercises which were provided to patient. Recommend follow-up in 3 months. I spent 3 minute planning including prepping note and chart review. I spent 27 minute dfci-sf-hroa interaction with patient addressing issuesdiscussed in visit today. I spent 5 minute time in postop visitplanning including note finishing in depart process. Total time spent on patient visit 35 minutes. 2.Arthritis of both feet 3.Pes planus of both feet 4.Arthritis of both subtalar joints Immunizations Given and Recorded Vaccine Date Status Refusal Reason tetanus/diphtheria/pertuss, acel (Tdap) 04/03/16 G iven Medications amLODIPine 10 mg oral tablet Start: 11/29/23 2:32:00 PM EDT, 1 tab, PO, Daily, Disp# 90 tab, X 90 day, Refills: 3, Stop: 11/23/24 2:32:00 PM EDT, Pharmacy: [facility] Start Date: 11/29/23 Stop Date: 11/23/24 Status: Ordered Crestor 5 mg oral tablet Start: 11/29/23 2:32:00 PM EDT, 1 tab, PO, qhs, Disp# 90 tab, Refills: 3, Pharmacy: [facility] Start Date: 11/29/23 Stop Date: 11/23/24 Status: Ordered Metoprolol Succinate ER 100 mg oral tablet, extended release Start: 11/29/23 2:32:00 PM EDT, 1 tab, PO, Daily, Disp# 90 tab, Refills: 3, Pharmacy: [facility] Start Date: 11/29/23 Stop Date: 11/23/24 Status: Ordered omeprazole 20 mg oral delayed release capsule Start: 11/29/23 2:32:00 PM EDT, 1 cap, PO, Daily, Disp# 90 cap, Refills: 3, Pharmacy: [facility] Start Date: 11/29/23 Status: Ordered valsartan 80 mg oral tablet Start: 11/29/23 2:33:00 PM EDT, 1 tab, PO, Daily, Disp# 90 tab, Refills: 3, Pharmacy: [facility] Start Date: 11/29/23 Stop Date: 11/23/24 Status: Ordered Mental Status 03/09/24 Barriers to Learning one year None evide nt Mandatory Health Literacy Documentation Yes Health Literacy Communication Barriers N ever Primary Language Serbian Problem List Condition Confirmation Course Effective Dates [...] feet Confirmed Active Weight disorder Confirmed Active Fjfse-Epoyvfgrg-Mht te (WPW) syndrome Confirmed Active Diagnosis Diagnosis Type Effective Dates Health Status Cl inical Service Informant Pain in both feet Discharge Diagnosis 03/09/24 Non-Specified Pes planus of both feet Discharge Diagnosis 03/09/24 Non-Specified Arthritis of both feet Discharge Diagnosis 03/09/24 Non-Specified Arthritis of both subtalar joints Discharge Diagnosis 03/09/24 Non-Specified Procedures Procedure Date Related Diagnosis Body [...] Status Never smoked cigaret josie Sex Male Ortho Outpt Note * SHARIF Villa, Julia Gomez: PERFORM Event Display: Ortho Outpt Note Authored Date: [id number] Primary Care Provider MD Cristi, Jim Chief Complaint b/l foot pain, requesting orthotics if applicable History of Present Illness Patient is a very pleasant 54-year-old male presenting today for an initial evaluation for orthotics and foot pain. PCPDr. Cristi Past medical historycalcific tendinitisGERD high blood pressure hyperlipidemia YBOoTodxa-Sfvdpvtdn-Nmkvy syndrome. Surgical historykidney appendectomy extraction of wisdom teeth. Medicationsreviewed Allergiesreviewed. Social historycurrent everyday heavy smokerdenies alcohol use. Smokes 1 pack/day Family historyhypertension lung cancer and stroke Review of Systems Irregular heartbeat shortness of breath wheezing persistent cough Physical Exam Problem focused bilateral feet: Dorsalis pedis pulse palpable 2-4, posterior tibial pulse palpable 2 out of 4,capillary refill time less than 3 seconds, skin turgor is good to all digitsof both feet pedal hair is present. Gross sensation is intact all digits of both feetpatient does occasionally have numbness in his feet which is I think secondaryto his flatfeet affecting his posterior tibial nerve however I was not able to reproduce a positive Tinel's sign. Skin is clean and dry without open wounds or lesions. Right foot with moderate pes planusthereis somelimitation of movementof the posterior tibial tendon although no acute swelling or erythemamostly patient experiences lateral subtalar joint pain likely secondary to sinus tarsi syndromefrom his pronated feetrecommend ultrasound-guided injection. Left foot with moderatepes planusthere is more tenderness at the lateral aspect of the subtalarjoint consistent with sinus tarsi syndromehistory of occasional pain along the posterior tibial tendon which I think at times becomes inflamedsecondary to his flatfoot deformity recommend ultrasound-guided injection of her sinus tarsi. X-ray dictation 3 views bilateral feet:3 views of bilateral feet show no acute fractures or dislocationsmild arthritic changes noted at tarsometatarsal joints. Lateral view of the right footshows significant decreased arch height, arthritis of subtalar joint moderate midfoot arthritis. Inferior calcaneal heel spur incidental finding. Incidental finding of os trigonumright foot. Lateral view of the left foot shows decreased arch heightwith similar findings of arthritis of thesubtalar joint and midfoot arthritis,incidental finding of inferior calcaneal heel spurand os trigonum. I personally performed the interpretation of 3 views of bilateral feet. Assessment/Plan 1.Pain in both feet Discussed with patient that I do feel he shouldrespond positivelywith orthotics since his current pair are about 5 years old may be olderplaced an order and consult for patient to see [facility], he wearssolo orthotics and [facility] provide [facility] they have been successful in helping his foot pain in the past recommend to continue just needs an updated pair. Recommend ultrasound-guided injection for bilateral sinus tarsi syndrome ordered today. Recommended compression hose for some mild lower extremity nonpitting edemarecommend that these be between 10 and 20 mmHg. Recommend for patient to continue supportive shoe gear. Reviewed stretching exercises which were provided to patient. Recommend follow-up in 3 months. I spent 3 minute planning including prepping note and chart review. I spent 27 minute cuiw-pe-yjce interaction with patient addressing issuesdiscussed in visit today. I spent 5 minute time in postop visitplanning including note finishing in depart process. Total time spent on patient visit 35 minutes. 2.Arthritis of both feet 3.Pes planus of both feet 4.Arthritis of both subtalar joints Problem List/Past Medical History Ongoing Arthritis of both feet Arthritis of both subtalar joints Calcific tendinitis Cigarette nicotine dependence GERD HBP (high blood pressure) Hyperlipemia LFT elevation Neck pain Pain in both feet Pes planus of both feet Shoulder pain Smoker Snores Weight disorder Pvtvr-Sutgqmljm-Ofoyy (WPW) syndrome Procedure/Surgical History Low dose CT of chest without contrast| Service Date: 3Chest x- ray| Service Date: 08/03/2019Kidney| Service Date: 1983AppendectomyExtraction of wisdom tooth Medications amLODIPine(amLODIPine 10 mg oral tablet), 10 mg= 1 tab, PO, Daily, 3 refills metoprolol(Metoprolol Succinate ER 100 mg oral tablet, extended release), 100 mg= 1 tab, PO, Daily,3 refills omeprazole(omeprazole 20 mg oral delayed release capsule), 1 cap, PO, Daily, 3 refills rosuvastatin(Crestor 5 mg oral tablet), 5 mg= 1 tab, PO, qhs, 3 refills valsartan(valsartan 80 mg oral tablet), 80 mg= 1 tab, PO, Daily, 3 refills Allergies Alevehives losartancough Social History Smoking Status Never smoked cigarettes Alcohol - Denies Alcohol Use Exercise - Does not exercise Tobacco - High Risk Type:Cigarettes Tobacco use per day:2 Started at age:11Years Family History Hypertension..: Father. Lung cancer......: Father. Stroke: Father. Health Status Family Member(s) Immunizations Vaccine Date Status tetanus/diphtheria/pertuss, acel (Tdap) 04/03/2016 Given Recommendations Health Maintenance Pending(in the next year) Due Adult Influenza Vaccine due02/20/24and every 1year Adult COVID-19 Vaccination due03/09/24Unknown Frequency Adult Social Determinants of Health Screening due03/09/24Unknown Frequency Colorectal Cancer Screening due03/09/24Unknown Frequency Pneumococcal Vaccine Adults and Adolescents with Chronic Illness due03/09/24One-time only Shingles Vaccine due03/09/24One-time only Due In Future Body Mass Index not due until11/29/24and every 366day Satisfied(in the past 1 year) Satisfied Body Mass Index on11/29/23.Satisfied by AXEL Delaney Vanessa T Electronic Signature on File CC: Jim Colin MD [address] [place] [address] Electronically Reviewed/Signed by: Julia Villa DPM Author Signature Dt/Tm:03/09/2024 02:50 PM Division of Sports Medicine CLR Patient Care team information Care Team Personnel Name: MD Colin Dongsheng Position: Physician - Family Med Member Role: Primary Care Provider Address: Address: [address] [place] [address] [place] Care Team Related Persons Name: JOSE ENRIQUE RODAS Address: home [address] [place] [phone] Name: JOSE ENRIQUE RODAS Address: [facility] Address: home [address] [place], [place] [id number]"
--- NOTE | 2024-08-10 09:15 | Critical Care Progress Note ---
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 QRS complexes widened. Reviewed EKGs with cardiology and electrophysiology today. Plans to proceed with synchronized cardioversion later today. Recommendation: 1. A-fib with RVR and history of preexcitation syndrome: Discontinue procainamide as it has not been particularly effective. Discussed other antiarrhythmics with cardiology. Will hold for now until formal consultation achieved. Keep n.p.o. and continue heparin. Anticipate probable cardioversion today. 2. Will likely need to transition to DOAC for the next 6 weeks at least. Outpatient monitoring and consideration for potential Holter or ZIO monitor might be appropriate. 3. History of alcohol abuse: Continue to follow clinically. No need for benzodiazepines currently. Hopefully we can disposition the patient to the hospital before this becomes an issue. The above recommendations and plan were extensively discussed with the patient as well as with bedside critical care nurse and on multidisciplinary rounds as well as with cardiology. A total of 50 minutes was spent in evaluation management and coronation of care for this patient. Admission and Anticipated Discharge Date Admission Date: August 09, 2024 Subjective Patient seen and examined. EMR reviewed. Discussed with cardiology as well as with bedside critical care nurse. The patient complains of continued shortness of breath and some chest discomfort which he describes as heartburn. He is not particularly bothered by palpitations. No syncope or presyncope. No vision changes. He is n.p.o. and anticoagulated on heparin. Review of Systems Review of Systems: All systems reviewed & are unremarkable except as noted in Subjective Physical Exam Constitutional: WD/WN, vitals as above Neck: trachea midline, no thyromegaly Respiratory: normal respiratory effort, lungs clear to auscultation Cardiovascular: Rate/Rhythm: + tachycardic and + irregularly irregular Heart Sounds: normal S1 and normal S2; no murmur Extremities: no edema Gastrointestinal (Abdomen): normal bowel sounds, soft, nontender, no hepatosplenomegaly Musculoskeletal: Extremities: extremities normal to inspection Skin: no rashes, warm and dry Neurologic: Nonfocal exam Lymphatic: no cervical lymphadenopathy Results & Data Results & Data Vital Signs (Past 12 Hours) Vital Signs Temp Pulse Resp BP Pulse Ox O2 Del Method 08/10/24 08:00 145 H 08/10/24 07:57 145 H 08/10/24 07:56 144 H 21 107/70 96 Room Air 08/10/24 07:55 36.5 C 08/10/24 06:01 130/80 08/10/24 06:01 130/80 08/10/24 06:00 150 H 20 96 08/10/24 05:34 111/78 08/10/24 05:34 111/78 08/10/24 05:34 111/78 08/10/24 05:33 147 H 16 96 08/10/24 05:06 145 H 22 96 08/10/24 05:01 109/73 08/10/24 05:01 109/73 08/10/24 05:00 155 H 16 93 08/10/24 04:31 141/88 H 08/10/24 04:30 151 H 20 96 08/10/24 04:06 148 H 22 94 08/10/24 04:01 122/71 08/10/24 04:01 122/71 08/10/24 03:42 147 H 22 95 08/10/24 03:41 99/80 L 08/10/24 03:36 159 H 16 97 08/10/24 03:21 166 H 16 97 08/10/24 03:00 115/80 08/10/24 03:00 115/80 08/10/24 03:00 115/80 08/10/24 02:51 161 H 16 96 08/10/24 02:31 110/61 08/10/24 02:31 110/61 08/10/24 02:21 159 H 19 93 08/10/24 02:06 148 H 12 96 08/10/24 02:00 94/70 L 08/10/24 01:48 138 H 20 94 08/10/24 01:34 117/88 08/10/24 01:34 117/88 08/10/24 01:18 154 H 17 95 08/10/24 01:01 93/56 L 08/10/24 01:00 150 H 20 96 08/10/24 00:15 156 H 19 96 08/10/24 00:01 105/69 12/19/24 00:01 105/69 08/10/24 00:00 157 H 08/09/24 23:30 104/72 08/09/24 23:30 104/72 08/09/24 23:24 153 H 17 96 08/09/24 23:00 90/78 L 08/09/24 23:00 159 H 20 98 08/09/24 22:30 153 H 22 94 08/09/24 22:30 92/79 L 08/09/24 22:30 92/79 L 08/09/24 22:15 159 H 17 96 08/09/24 22:15 114/93 08/09/24 22:09 159 H 15 96 08/09/24 22:01 103/81 08/09/24 22:00 36.5 C 08/09/24 21:50 130/53 L 08/09/24 21:45 146 H 23 96 08/09/24 21:30 100/73 08/09/24 21:30 100/73 08/09/24 21:21 130 H 15 96 08/09/24 21:17 120/81 08/09/24 21:17 120/81 Critical Care Results & Data Vital Signs (Past 12 Hours) Vital Signs Temp Pulse Resp BP Pulse Ox O2 Del Method 08/10/24 08:00 145 H 08/10/24 07:57 145 H 08/10/24 07:56 144 H 21 107/70 96 Room Air 08/10/24 07:55 36.5 C 08/10/24 06:01 130/80 08/10/24 06:01 130/80 08/10/24 06:00 150 H 20 96 08/10/24 05:34 111/78 08/10/24 05:34 111/78 08/10/24 05:34 111/78 08/10/24 05:33 147 H 16 96 08/10/24 05:06 145 H 22 96 08/10/24 05:01 109/73 08/10/24 05:01 109/73 08/10/24 05:00 155 H 16 93 08/10/24 04:31 141/88 H 08/10/24 04:30 151 H 20 96 08/10/24 04:06 148 H 22 94 08/10/24 04:01 122/71 08/10/24 04:01 122/71 08/10/24 03:42 147 H 22 95 08/10/24 03:41 99/80 L 08/10/24 03:36 159 H 16 97 08/10/24 03:21 166 H 16 97 08/10/24 03:00 115/80 08/10/24 03:00 115/80 08/10/24 03:00 115/80 08/10/24 02:51 161 H 16 96 08/10/24 02:31 110/61 08/10/24 02:31 110/61 08/10/24 02:21 159 H 19 93 08/10/24 02:06 148 H 12 96 08/10/24 02:00 94/70 L 08/10/24 01:48 138 H 20 94 08/10/24 01:34 117/88 08/10/24 01:34 117/88 08/10/24 01:18 154 H 17 95 08/10/24 01:01 93/56 L 08/10/24 01:00 150 H 20 96 08/10/24 00:15 156 H 19 96 08/10/24 00:01 105/69 08/10/24 00:01 105/69 08/10/24 00:00 157 H 08/09/24 23:30 104/72 08/09/24 23:30 104/72 08/09/24 23:24 153 H 17 96 08/09/24 23:00 90/78 L 08/09/24 23:00 159 H 20 98 08/09/24 22:30 153 H 22 94 08/09/24 22:30 92/79 L 08/09/24 22:30 92/79 L 08/09/24 22:15 159 H 17 96 08/09/24 22:15 114/93 08/09/24 22:09 159 H 15 96 08/09/24 22:01 103/81 08/09/24 22:00 36.5 C 08/09/24 21:50 130/53 L 08/09/24 21:45 146 H 23 96 08/09/24 21:30 100/73 08/09/24 21:30 100/73 Lab & Micro Results (Past 24 Hours) RBC 4.40 M/uL (4.70-6.10) L 08/10/24 WBC 9.28 K/ul (4.8-10.8) 08/10/24 Hgb 14.0 g/dl (14.0-18.0) 08/10/24 Hct 41.6 % (42.0-52.0) L 08/10/24 MCV 94.5 fL (80.0-100.0) 08/10/24 MCH 31.8 pg (25.0-34.0) 08/10/24 MCHC 33.7 g/dL (32.0-36.0) 08/10/24 RDW Standard Deviation 47.3 fL (36.4-46.3) H 08/10/24 RDW Coefficient of Variation 13.5 % (11.5-14.5) 08/10/24 Plt Count 207 K/uL (130-400) 08/10/24 MPV 9.9 fL (9.4-12.4) 08/10/24 Neutrophils (%) (Auto) 47.4 % 08/10/24 Lymphocytes (%) (Auto) 39.3 % 08/10/24 Monocytes # (Auto) 0.69 K/uL (0.11-0.59) H 08/10/24 Eosinophils # (Auto) 0.44 K/uL (0.00-0.50) 08/10/24 Immature Granulocyte % (Auto) 0.4 % 08/10/24 Neutrophils # (Auto) 4.39 K/uL (1.40-6.50) 08/10/24 Lymphocytes # (Auto) 3.65 K/uL (1.20-3.40) H 08/10/24 Monocytes # (Auto) 0.69 K/uL (0.11-0.59) H 08/10/24 Eosinophils # (Auto) 0.44 K/uL (0.00-0.50) 08/10/24 Basophils # (Auto) 0.07 K/uL (0.00-0.20) 08/10/24 Immature Granulocyte # (Auto) 0.04 K/uL (0.01-0.20) 4 Na 138 mmol/L (136-145) 08/10/24 K 3.9 mmol/L (3.5-5.1) 08/10/24 Cl 108 mmol/L (98-107) H 08/10/24 CO2 23 mmol/L (21-32) 08/10/24 Anion Gap 7 (3-11) 08/10/24 BUN 11 mg/dl (6-23) 08/10/24 Creatinine 0.92 mg/dl (0.6-1.4) 08/10/24 BUN/Creatinine Ratio 12.0 (10-20) 08/10/24 Glu 114 mg/dl (70-99(Fasting)) H 08/10/24 Ca 8.2 mg/dl (8.6-10.3) L 08/10/24 Phosphorus Level 3.2 mg/dl (2.5-4.9) 08/10/24 Total Bilirubin 0.6 mg/dl (0.2-1.0) 08/09/24 AST 25 U/L (13-39) 08/09/24 ALT 40 U/L (7-52) 08/09/24 Alkaline Phosphatase 46 U/L (34-104) 08/09/24 TP 7.1 gm/dl (6.0-8.3) 08/09/24 Albumin 4.5 gm/dl (3.4-5.0) 08/09/24 Globulin 2.6 gm/dl (2.5-4.0) 08/09/24 Albumin/Globulin Ratio 1.7 (0.9-2) 08/09/24 Mg 2.3 mg/dl (1.7-2.4) 08/10/24 03:52 Calcium Level 8.2 mg/dl (8.6-10.3) L 08/10/24 03:52 Prothromb Time International Ratio 0.9 (0.9-1.1) 08/09/24 16:1 5 Diagnostic Findings (Past 24 Hours) Chest X-Ray 08/09/24 16:06 EXAM: Radiograph of the Chest 1 View INDICATION: Heart palpitations 1 hour ago. Chest pressure. TECHNIQUE: Frontal view of the chest. COMPARISON: 02/22/2024 FINDINGS: Lungs and pleural spaces: No consolidation or pulmonary edema. No pleural effusion or pneumothorax. Heart: Stable prominent cardiac shadow. Mediastinum: Normal contour. Bones/joints: No fracture, erosion or dislocation. Soft tissues: No abnormality noted. No radiopaque foreign body noted. Upper abdomen: No abnormality noted. IMPRESSION: No acute cardiopulmonary disease. ACT 112: Negative or not required by law. Electronically signed by Penny Baker 08-09-2024 4:28 PM I & O Totals 24 Hours 08/09/24 08/10/24 08/11/24 06:59 06:59 06:59 Intake Total 3244.25 / 3244.25 358.333 / 358.333 Output Total 351 / 351 0 / 0 Balance 2893.25 / 2893.25 358.333 / 358.333 Cumulative 08/09/24 16:02 thru 08/10/24 08:48 Intake Total 3602.583 Output Total 351 Balance 3251.583 RT Ventilator Mngmt (Last Documented) Ventilator Ordered Settings Respiratory Rate 21 08/10/24 07:56 Ventilator - PT Measurements Respiratory Rate 21 Coding Level of Care Code 97761 SUB INP/OBS CARE 3/50MIN Diagnoses Atrial fibrillation with rapid ventricular response I48.91 Xnwwr-Exqjsiued-Pyxjw (WPW) pattern I45.6 Chest pain R07.9 Chest pain type: unspecified (3) Chest pain Chest pain type: unspecified Qualified Code(s): R07.9 - Chest pain, unspecified
--- NOTE | 2024-08-10 11:34 | Anesthesiology Consultation ---
Date of Service August 10, 2024 Assessment & Plan (1) Encounter for pre-operative examination: Chart Review Chart Review: Acceptable Risk for Surgery History Height/Weight Height: 6 ft 1 in Weight: 121.2 kg Allergies Allergy/AdvReac Type Severity Reaction Status Date / Time naproxen Allergy Intermediate HIVES Verified 08/09/24 16:34 Medications Home Medications Medication Instructions Recorded Confirmed Last Taken omeprazole 20 mg capsule,delayed 20 mg PO QAM 01/21/21 08/09/24 08/09/24 release amlodipine 10 mg tablet 10 mg PO QAM 11/05/22 08/09/24 08/09/24 rosuvastatin 5 mg tablet 5 mg PO QAM 11/05/22 08/09/24 08/09/24 metoprolol succinate 100 mg 100 mg PO QAM 08/09/24 08/09/24 08/09/24 tablet,extended release 24 hr valsartan 80 mg tablet 80 mg PO QAM 08/09/24 08/09/24 08/09/24 Active Medications Generic Name Dose Route Start Last Admin Trade Name Freq PRN Reason Stop Dose Admin Heparin Sodium/Dextrose 25,000 units in 500 mls @ 35 mls/hr 08/09/24 18:00 08/10/24 08:48 Heparin Sodium/Dextrose IV 09/08/24 17:59 1,750 units/hr .[id number] LISA 35 mls/hr Administration Protocol 1,750 UNITS/HR Thiamine HCl 100 mg/ Syringe 10 mls @ 2 mls/min 08/09/24 19:00 08/10/24 08:49 IV 09/08/24 18:59 2 mls/min QAM LISA Administration Folic Acid 1 mg/ Syringe 10 mls @ 5 mls/min 08/09/24 19:00 08/10/24 08:49 IV 09/08/24 18:59 5 mls/min QAM LISA Administration Miscellaneous 1 each 08/09/24 21:02 08/10/24 08:49 Icu Protocol For Hyperglycemia N/A 08/11/24 21:01 Not Given ACHS LISA Past Medical History Medical History (Updated 08/10/24 @ 11:34 by Anthony Gaviria MD) Atrial fibrillation with rapid ventricular response COPD (chronic obstructive pulmonary disease) Ureteral obstruction Hyperlipidemia WPW (Babfc-Dtvhlwrdi-Cqnzn syndrome) Osteoarthritis Accelerated hypertension Tobacco abuse Past Family History Family History Uncle Coronary heart disease Brother Hypertension Other Stroke Past Surgical History Surgical History History of urologic surgery Social History Smoking Status: Current every day smoker Smoking cigarettes per day: 1 1/2 pack per day Hx Alcohol Use: Yes Alcohol type: beer alcohol intake frequency: 3 or more drinks per day Alcohol Intake Frequency Comment: 8 beers a day Hx Substance Use: No Physical Exam Vital Signs Last Vital Signs Temp 36.5 C 08/10/24 07:55 Pulse 160 H 08/10/24 10:00 Resp 18 08/10/24 10:00 BP 100/75 08/10/24 10:01 Pulse Ox 95 08/10/24 10:00 O2 Del Method Room Air 08/10/24 07:56 Testing Laboratory Results 08/10/24 03:52 08/10/24 03:52 PT 10.3 Seconds (9.0-12.0) 08/09/24 16:15 INR 0.9 (0.9-1.1) 08/09/24 16:15 APTT 27 Seconds (21-31) 08/09/24 16:15 Electrocardiogram Date: 08/09/24 Findings: + AFIB @ (145) and + LBBB Echocardiogram Date: 06/04/21 EF: 60% LV Function: normal Valvular Disease: + no significant valvular disease
[2024-08-10] MEDS ORDERED: PROPOFOL IV EMULSION 10 MG/ML 20 ML VIAL IV ONE (11:50)
[2024-08-10] MEDS ORDERED: LIDOCAINE 2% 2 ML VIAL/AMP(20MG/ML) INFIL ONE (11:50)
--- NOTE | 2024-08-10 15:44 | Cardiology Consultation ---
Date of Consultation August 10, 2024 Assessment & Plan (1) Pre-excited atrial fibrillation: (2) Sgxhx-Abhvpcqph-Cyhzu (WPW) pattern: (3) Hypertension: Plan 1. Atrial fibrillation: The patient presented with atrial fibrillation and a rapid ventricular rate. Standard rate control agents were relatively contraindicated due to the preexcited nature of his tachycardia. He was started on procainamide infusion. There was no conversion or significant slowing of the heart rate noted. I think we should perform a cardioversion. I did discuss this with the patient and his and we will plan on proceeding this afternoon. Subsequently he will need to be on systemic anticoagulation for at least 1 month. His MNN7ZJ1-YAEy score is 1. This is for hypertension exclusively. We could debate whether he needs more extended anticoagulation at some point. The etiology of his atrial fibrillation is unclear. No structural abnormalities on his echocardiogram. He does have a longstanding history of hypertension and that could be a precipitant although he is relatively young. He does not give a good history for obstructive sleep apnea. Thyroid test was essentially normal. Elevated TSH but normal free T4. It is very possible that his heavy alcohol use contributes. 2. 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 Until now he is not known to have had symptoms associated with WPW. It is possible his atrial fibrillation was precipitated by an episode of reentry. However, this could certainly just be an episode of paroxysmal atrial fibrillation. Given complexities associated with treatment of atrial fibrillation in the setting of preexcitation I recommended catheter-based therapy to at least eliminate the accessory pathway. This may in fact prevent additional episodes of atrial fibrillation as well. Consideration could be given to pulmonary vein isolation also. At this point he seems interested and we will make the appropriate arrangements. Fortunately, the accessory pathway does not conduct well enough to cause a dangerous condition. There are some relatively short RR intervals, but overall he is tolerated this quite well despite preexcitation. Likely due to his more advanced age. 3. Hypertension: His states that they have had difficulty controlling his blood pressure over time. Unfortunately, a beta-tito was employed for its antihypertensive properties and is relatively contraindicated in his condition. Given his relatively advanced age is unlikely to have caused serious problem but at this point I think stopping the beta-tito while we address his other issues seems best. 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 Patient states that he had been feeling well un til yesterday afternoon. While seated in an automobile he began to experience the symptoms. The symptoms themselves persisted and he elected to proceed to the emergency room for an evaluation. He was found to have an elevated heart rate. Adenosine and beta-blockade were administered without effect. Patient was then felt to have atrial fibrillation with associated preexcitation and was started on heparin and procainamide infusion. The patient states that he has otherwise been feeling well. He is able to perform routine activity without significant limitation. He specifically denied any exertional chest pain, dizziness, palpitations or breathing difficulty. He recalls being evaluated for WPW many years ago. He has not reported symptoms of high heart rate or palpitation. No history of syncope. While he did not feel well during yesterday's episode he did not notice any elevated heart rates or sense of palpitation. Allergies Allergy/AdvReac Type Severity Reaction Status Date / Time naproxen Allergy Intermediate HIVES Verified 08/09/24 16:34 Home Medications Medication Instructions Recorded Confirmed Type omeprazole 20 mg capsule,delayed 20 mg PO QAM 01/21/21 08/09/24 History release amlodipine 10 mg tablet 10 mg PO QAM 11/05/22 08/09/24 History rosuvastatin 5 mg tablet 5 mg PO QAM 11/05/22 08/09/24 History valsartan 80 mg tablet 80 mg PO QAM 08/09/24 08/09/24 History apixaban 5 mg tablet (Eliquis) 5 mg PO BID #60 tabs 08/10/24 Rx folic acid 1 mg tablet 1 mg PO DAILY #30 tabs 08/10/24 Rx thiamine HCl (vitamin B1) 100 mg 100 mg PO DAILY #30 tabs 08/10/24 Rx tablet Patient History Medical History (Updated 08/10/24 @ 11:34 by Anthony Gaviria MD) Atrial fibrillation with rapid ventricular response COPD (chronic obstructive pulmonary disease) Ureteral obstruction Hyperlipidemia WPW (Ctcdl-Dmuqbhgfa-Erfkz syndrome) Osteoarthritis Accelerated hypertension Tobacco abuse Surgical History History of urologic surgery Family History Uncle Coronary heart disease Brother Hypertension Other Stroke Social History Smoking Status: Current every day smoker Tobacco Type: Cigarettes Cigarettes Per Day: 1 1/2 pack per day; Hx Alcohol Use: Yes Alcohol type: beer Hx Substance Use: No Preferred Language: Tristanian Communication Ability: Effective Hearing Ability: Normal Executive Casino Host Required: No Beliefs That Will Affect Care: None Current Living Situation: Spouse current occupational status: employed current occupation: [employer] Feels Safe at Home: Yes Assistive Devices: None Review of Systems Review of Systems: Per HPI. Patient does consume several alcoholic beverages daily. No history of significant snoring or daytime somnolence. Physical Exam Physical Exam: The patient is alert and oriented. Mood and affect appeared normal. He answered all questions appropriately. HEENT: Pupils are equal and reactive to light and accommodation. Extraocular movements are intact. The sclerae are anicteric. Neuro: Cranial nerves intact Neck: Patient's neck is supple. He has palpable carotid pulses bilaterally without bruits on auscultation. There is no evidence of jugular venous distention. The thyroid is not enlarged. Lungs: Clear to auscultation bilaterally. He has good air movement without use of accessory muscles. No rales wheezes or rhonchi. Cardiac: Heart demonstrates an irregular rhythm with elevated heart rate. Normal S1 and S2. No murmurs on examination. Pulses: The patient has palpable radial pulses bilaterally that are equal in intensity Extremities: There was no evidence of hypoperfusion. There is no cyanosis or clubbing. There is no edema. Skin: I did not appreciate any rashes on examination today. Results & Data Vital Signs (Past 12 Hours) Vital Signs Temp Pulse Resp BP Pulse Ox O2 Del Method 08/10/24 13:00 100 H 24 143/94 H 97 08/10/24 12:00 95 H 20 147/97 H 97 08/10/24 11:52 147/96 H 08/10/24 11:48 99 H 19 96 08/10/24 11:21 158 H 24 97/73 L 95 08/10/24 10:06 174 H 22 117/91 94 08/10/24 10:01 100/75 08/10/24 10:00 160 H 18 95 08/10/24 09:09 147 H 20 95 08/10/24 09:01 103/69 08/10/24 08:01 117/75 08/10/24 08:00 131 H 15 96 08/10/24 08:00 145 H 08/10/24 07:57 145 H 08/10/24 07:56 144 H 21 107/70 96 Room Air 08/10/24 07:55 36.5 C 08/10/24 07:03 141 H 18 96 Room Air 08/10/24 06:01 130/80 08/10/24 06:01 130/80 08/10/24 06:00 150 H 20 96 08/10/24 05:34 111/78 08/10/24 05:34 111/78 08/10/24 05:34 111/78 08/10/24 05:33 147 H 16 96 08/10/24 05:06 145 H 22 96 08/10/24 05:01 109/73 08/10/24 05:01 109/73 08/10/24 05:00 155 H 16 93 08/10/24 04:31 141/88 H 08/10/24 04:30 151 H 20 96 08/10/24 04:06 148 H 22 94 08/10/24 04:01 122/71 08/10/24 04:01 122/71 08/10/24 03:42 147 H 22 95 Laboratory Results Abnormal Lab Results 08/09/24 08/09/24 08/09/24 16:15 21:22 21:30 WBC 12.60 H RBC 5.24 Hgb 16.9 Hct 48.8 MCV 93.1 MCH 32.3 MCHC 34.6 RDW Std Deviation 45.9 RDW Coeff of César 13.4 Plt Count 258 MPV 9.7 Immature Gran % (Auto) 0.3 Neut % (Auto) 51.6 Lymph % (Auto) 34.2 [place] % (Auto) 9.0 Eos % (Auto) 4.1 Baso % (Auto) 0.8 Neut # (Auto) 6.50 Lymph # (Auto) 4.31 H [place] # (Auto) 1.13 H Eos # (Auto) 0.52 H Baso # (Auto) 0.10 Immature Gran # (Auto) 0.04 PT 10.3 INR 0.9 APTT 27 PTT Ratio 1.0 Heparin Anti-Xa, Unfract Sodium 140 Potassium 3.7 Chloride 104 Carbon Dioxide 26 Anion Gap 10 BUN 10 Creatinine 1.07 Est Cr Clr Drug Dosing Not Reportable eGFR 81.95 BUN/Creatinine Ratio 9.3 L Glucose 95 POC Glucose 115 H Calcium 9.1 Phosphorus Magnesium 1.8 Total Bilirubin 0.6 AST 25 ALT 40 Alkaline Phosphatase 46 Troponin I High Sens 7.1 8.7 Total Protein 7.1 Albumin 4.5 Globulin 2.6 Albumin/Globulin Ratio 1.7 TSH 7.608 H Free T4 0.74 Nasal Screen MRSA (PCR) 08/09/24 08/10/24 08/10/24 Unknown 00:23 03:52 WBC 9.28 RBC 4.40 L Hgb 14.0 D Hct 41.6 L MCV 94.5 MCH 31.8 MCHC 33.7 RDW Std Deviation 47.3 H RDW Coeff of César 13.5 Plt Count 207 MPV 9.9 Immature Gran % (Auto) 0.4 Neut % (Auto) 47.4 Lymph % (Auto) 39.3 [place] % (Auto) 7.4 Eos % (Auto) 4.7 Baso % (Auto) 0.8 Neut # (Auto) 4.39 Lymph # (Auto) 3.65 H [place] # (Auto) 0.69 H Eos # (Auto) 0.44 Baso # (Auto) 0.07 Immature Gran # (Auto) 0.04 PT INR APTT PTT Ratio Heparin Anti-Xa, Unfract 0.42 0.48 Sodium 138 Potassium 3.9 Chloride 108 H Carbon Dioxide 23 Anion Gap 7 BUN 11 Creatinine 0.92 Est Cr Clr Drug Dosing 125.2 eGFR 98.24 BUN/Creatinine Ratio 12.0 Glucose 114 H POC Glucose Calcium 8.2 L Phosphorus 3.2 Magnesium 2.3 Total Bilirubin AST ALT Alkaline Phosphatase Troponin I High Sens Total Protein Albumin Globulin Albumin/Globulin Ratio TSH Free T4 Nasal Screen MRSA (PCR) Negative PG Care Time/CCT Total # of Minutes Spent Total Time Spent with Patient: Total time spent is greater than 50% in coordination of care (as documented) at patient's floor/unit and/or counseling patient: Coding Level of Care Code 15269 IN/OBS CONSULT LVL 4,60M Diagnoses Pre-excited atrial fibrillation I48.91 Yuolx-Vistdbxmv-Rpdid (WPW) pattern I45.6 Hypertension I10
--- NOTE | 2024-08-10 16:19 | Discharge Summary ---
Date of Service August 10, 2024 Admission HPI Per Admitting Provider Mainor is a 54-year-old male with a past medical history of preexcitation/Wttxj-Mv[place]ubaii-Dztrd who was evaluated but ultimately did not require ablation several years prior who presents with the acute onset of diaph oresis, palpitations, dizziness which started abruptly at approximately 1 30-1 40 5 PM this afternoon. He denies any past history of A-fib. He had some tightness/chest pressure which resolved in the ER following initial rate control. He reports that in the past week he has been in his usual state of health and before today has not had any lightheadedness, dizziness, chest pain, fever, chills, cough, shortness of breath, difficulty breathing, chest pain, chest pressure with exertion or at rest, nausea/vomiting/diarrhea, lower extremity swelling, or orthopnea. He does drink 6-8 beers per day, last alcohol free day was more than several months ago. He denies history of seizure/withdrawal, but again notes that he has not had an alcohol free day in a long time. Last drink was yesterday ev ening at about 6 PM. Denies recent binge drinking or drinking in excess of his usual 68 intake. He smokes 1 pack of cigarettes per day no diagnosed history of COPD and wheezes intermittently but has not had any recent wheezing. Denies to use. Denies recreational drug use. Denies sleep apnea. Full code Admission Exam Per Admitting Provider GENERAL: Awake, alert, in no distress HENT: Normocephalic, atraumatic. Oropharynx with dry mucous membranes and otherwise unremarkable. EYES: Normal conjunctiva. Sclera non-icteric. NECK: Supple. No nuchal rigidity. FROM. No JVD. RESPIRATORY: Clear to auscultation. CARDIAC: Tachycardic rate, irregular rhythm. Extremities warm and well perfused. Pulses equal. ABDOMEN: Soft, non-distended. No tenderness to palpation. No rebound or guarding. No masses. MUSCULOSKELETAL: Chest examination reveals no tenderness. The back is symmetrical on inspection without obvious abnormality. There is no CVA tenderness to palpation. No joint edema. LOWER EXTREMITIES: Calves are equal size bilaterally and non-tender. No edema. No discoloration. NEURO: Normal sensorium. No sensory or motor deficits noted. SKIN: No rash or jaundice noted. Principal Diagnosis 1. Atrial Fibrillation with preexcitation Discharge Exam GENERAL: Awake, alert, in no distress HENT: Normocephalic, atraumatic. Oropharynx with dry mucous membranes and otherwise unremarkable. EYES: Normal conjunctiva. Sclera non-icteric. NECK: Supple. No nuchal rigidity. FROM. No JVD. RESPIRATORY: Clear to auscultation. CARDIAC: Normal rate, regular rhythm. Extremities warm and well perfused. Pulses equal. ABDOMEN: Soft, non-distended. No tenderness to palpation. No rebound or guarding. No masses. MUSCULOSKELETAL: Chest examination reveals no tenderness. The back is symmetrical on inspection without obvious abnormality. There is no CVA tenderness to palpation. No joint edema. LOWER EXTREMITIES: Calves are equal size bilaterally and non-tender. No edema. No discoloration. NEURO: Normal sensorium. No sensory or motor deficits noted. SKIN: No rash or jaundice noted. Discharge Data Allergies Allergy/AdvReac Type Severity Reaction Status Date / Time naproxen Allergy Intermediate HIVES Verified 08/09/24 16:34 Consultations 08/09/24 17:45 ED Decision to Admit Stat 08/09/24 21:02 Consult Contract Engineer Routine 08/10/24 09:06 Consult Cardiology Routine 08/10/24 11:27 Consult Anesthesiology Routine Hospital Course (1) Ftmjv-Gedywkbrx-Piwso (WPW) pattern: (2) ETOH abuse: (3) Pre-excited atrial fibrillation: (4) Hypertension: Plan (1) Pre-excited atrial fibrillation: -Atrial fibrillation/Jjqoj-Ghjhxpkeh-Ootjo syndrome Patient noted to have wide- complex tachycardia with heart rate 160s to 180s on arrival to emergency department. EKG revealing A-fib RVR with premature ventricular to complexes. QRS 154. - No prior known history of atrial fibrillation -Patient Admitted to ICU as per Cardiology Recommendation - Initially received adenosine and metoprolol without improvement in rate. Heparin drip and procainamide was added. - Patient was prepared for Cardioversion but he reverted back to sinus rhythm while preparing for cardioversion. - He is ready to get discharged today. - Schedule patient for Cardiac Ablation as an outpatient procedure. -Eliquis 5mg PO BID added. -Stop Metoprolol (2) Hypertension -Continue home meds Valsartan and Amlodipine. -Stop Metoprolol - (3) ETOH abuse: - No alcohol Withdrawal symptoms while at hospital (4) COPD (chronic obstructive pulmonary disease): Has a long standing history of cigarette smoke with 1 PPD x 30 years. - Lungs wheezing on exam and patient reports this is his baseline with a chronic cough "due to cigarette smoking" - Appears to be stable at this time. No labored breathing. W - Will likely need PFTs in outpatient. (5) WPW (Nsnvc-Gddodyjvn-Onhwn syndrome): -Schedule Patient for Cardiac Ablation in outpatient setting. -Stop Metoprolol for now Total Time Total Time Spent Total Time Spent (In Minutes): <30 Discharge Plan Discharge Items Patient Disposition: Home - Self-Care Reason For Visit: WPW, AFIB WITH PREEXCITATION Discharge Diagnosis: 1. Atrial Fibrillation Activity: Per Instructions section Non-emergency contact: Primary Care Provider and Master Plumber Call non-emergency contact if: your symptoms worsen and your temperature is above 101.5 Follow-up/Referrals: Jim Colin [Primary Care Provider] - (patient will make PCP follow up appointment.) Diet: Heart Healthy Addtl Attending Provider Instructions: rapid heart rate - you came in with a rapid heart ratewhich appeared to be a combination of atrial fibrillation (more on that below) superimposed on the electrical conduction that comes from your known Emslk-Xmjkstsqz-Cmckz syndrome - this presented a rather complicated rhythm issue, because Xzbey-Gqcaaqrmy-Lcvfd generally requires very specific and nuanced management. Fortunately you felt pretty good in spite of the heart rate the whole time you were here, and converted to a regular rhythm. Because of that, it is safe to get you home. - as it relates to the Gmkni-Xomykjuao-Esary, and winter sports manager (think: "Cardiac aviation electrician") like Dr. Pierre can usually do a pretty successful ablation procedure to get rid of the "extra wires" that lead to Qlyps-Elmtnzznq-Wjtzu related heart racing, he is planning on getting you in to do an ablation, and it definitely makes sense to follow through with that to take this reason for heart racing off of your plate (and hopefully make things more simple if your heart ever races again) - Typically with Sdupr-Gmwurhmeu-Ypjiy, when we see heart racing, the physiology is such that a beta-tito medicine such as metoprolol can actually make things go faster (which is a bit strange, but part of the electrical pathways and WPW)to that end, we would recommend you stop taking your metoprolol the atrial fibrillation side of this is something that we see much more oftenwith atrial fibrillation the top part of the heart quivers instead of juliocesar. Whenever this happens, it sends a large amount of signals down to the ventricles to contractcreating a fast heart rate. In addition, because the top part of the heart is quivering instead of juliocesar, it forms a stagnant pond that allows clots to formwhich can put people at risk for stroke. Typically with atrial fibrillation the main management is medication to keep the heart rate under control, and a blood thinner to protect your brain from clot causing a stroke - fortunately, your heart is now back in a regular rhythm, so we do not need to do anything new/different to control the rate. We will send a prescription for Eliquis as a blood thinner to protect you from stroketypically this is covered by insurance anymore, but there are several fairly similar blood thinners on the market, and if the Eliquis is not covered, call us because likely if we do "trial and error" with insurance coverage, we will probably be able to find something that is not wildly expensive (when Eliquis is covered is usually in the neighborhood of 20$40, when it is not it can be as much as $500! But usually whenever Eliquis is not covered one of the other "cousin" blood thinners that are like it will beit is just the unfortunate "insurance trial and error game" to figure out which 1 is). - safety on a blood thinner: Of course whenever someone is on a blood thinner, they would be more likely to have some bleeding than when they are not. The first thing to remember with this is that the whole purpose of the blood thinner is to protect your brain from a clot killing off brain tissue which is what happens with an atrial fibrillation stroke. For most people, they tolerate these blood thinners just finemay be some "nuisance" bleeding such as if you cut yourself in the kitchen it may be a bigger bleed than before, or if you have a nosebleed it may look like a "gusher" more than you are used tobut most people do not have truly serious/dangerous bleeding. My rule for safety is pretty simpleif you have bleeding that you can put pressure on (such as a cut or nosebleed) put pressure on it and then look at the clock. If bleeding responds to 10 minutes of pressure it was far more annoying than dangerous. If it is bleeding that does not respond to 10 minutes of pressure then it is time to seek evaluation (it might simply be that the cut needs stitched, or the nosebleed needs packed or cauterized). That rule also makes it so that if you have bleeding that you cannot put pressure on) such as vomiting blood or pooping blood) you come straight to the hospital for further evaluation. Again, we fortunately do not see a whole lot of truly serious or worrisome bleeds on these blood thinners; the point of being on the blood thinners to protect your brain from irreversible damage with a stroke, and even when we do see more serious bleeds generally they are quite manageable. - As far as the cause of atrial fibrillationit is a reasonably common arrhythmia to simply have happen. At the same time, we do see an association with fairly heavy alcohol use and irritation of our cardiac conduction systemmeaning that that certainly could be part of the reason for the atrial fibrillation. (Related to that we will have you on thiamine and folic acid to protect your brain from some of the chronic effects that heavy drinking can have). Also, we will often see an association between untreated/undiagnosed sleep apnea and atrial fibrillationso usually I recommend having people get evaluated for sleep apnea (such as with a sleep study) whenever we see new onset atrial fibrillation to do: - Follow-up with Dr. Colin as he will be keeping an eye on all of this - follow-up with Dr. Pierre for the Cbdgy-Yafuwxsbs-Jemmm ablation, and he can also assist Dr. Colin with management of the atrial fibrillation as needed - take the Eliquis as prescribed (or call us if it is observably expensive) - have Dr. Colin evaluate you for sleep apnea and set up a sleep study if there is any doubt - work on reducing your alcohol consumption, or completely stopping alcohol if at all possible; take the thiamine and folic acid every day to protect your brain in the meantime Pending Studies at Discharge: Yes (echocardiogram done, official report by cardiology not complete yet) Stand-Alone Forms: My [facility] [employer] [place], Smoking Cessation Medications and DC Order Prescriptions: New Eliquis 5 mg tablet 5 mg PO BID Qty: 60 1RF thiamine HCl (vitamin B1) 100 mg tablet 100 mg PO DAILY Qty: 30 5RF folic acid 1 mg tablet 1 mg PO DAILY Qty: 30 5RF Continued omeprazole 20 mg capsule,delayed release(DR/EC) 20 mg PO QAM rosuvastatin 5 mg tablet 5 mg PO QAM amlodipine 10 mg tablet 10 mg PO QAM valsartan 80 mg tablet 80 mg PO QAM Discontinued metoprolol succinate 100 mg tablet extended release 24 hr 100 mg PO QAM Discharge Orders: Discharge Order (Routine); Ordered 08/10/24 Ordered By: Olman Hernandez Admission Data Admit Date/Time: 08/09/24 19:50 Attending Provider: Olman Hernandez Admit Provider: Nikko Patel Primary Care Provider: Jim Colin Other Providers: Nikko Patel; Jatin Ravi; Cosntantine Sharp; Mahad Hemphill; Jamey Sawant; Abiodun James; Javier Astudillo; Shashank Huerta Jr; Pascual Kaur; Bharti Lutz; Lashaun Moore; Kang Chance; Kang Pierre; Marcello Alonso; Loida Queen; Jessee Roa; Radha Dean; Emmett Muñoz; Jessee Yarbrough; Ruddy Elias; Ray Nguyen; Anthony Gaviria Other Interventions: Discharge Summary Assessment (RN) Last Done: 08/10/24 15:37 Supervising Physician Co-Signing Physician Notes I personally examined the patient and verified all dejesus points of history and exam, discussed case, and agree with decision making with Dr Rodriguez seen twice and after conversion feeling better. extesnsive d/w pt and answered all questions to the best of my ability and to their satisfaction. EP cardiology input appreciated as well vitals ntoed nad heent nc at mmm breathing unlabored no accessory muscles good effort skin no rashes no pallor or icterus WPW and afib RVR - now converted. safe/stable for home. anticoagulate for afib. EP for probable WPW ablation. extensive discussions. safe/stable for home. PCP and EP f/u - otherwise as above
[2024-08-10 16:29] VITALS: BP 139/90; PULSE 96; RESP 23; O2SAT 95
--- NOTE | 2024-08-10 17:23 | XCELERA ---
[id number] \\[id number]
--- NOTE | 2024-08-10 17:35 | Billing Data ---
Date of Service August 10, 2024 Coding Level of Care Code 83709 INP/OBS DISCH >30 MIN
--- NOTE | 2024-08-10 20:45 | Electrocardiogram Report ---
Test Reason : Blood Pressure : */* mmHG Vent. Rate : 140 BPM Atrial Rate : * BPM P-R Int : * ms QRS Dur : 144 ms QT Int : 332 ms P-R-T Axes : * 32 211 degrees QTcB Int : 506 ms Atrial fibrillation with rapid ventricular response with premature ventricular or aberrantly conducte d complexes Left bundle branch block Abnormal ECG When compared with ECG of 09-Aug-2024 16:37, No significant change was found Confirmed by Pascual Kaur ([id number]) on 08/10/2024 8:45:41 PM Referred By: REFERRED SELF Confirmed By: Pascual Kaur
--- NOTE | 2024-08-10 20:45 | Electrocardiogram Report ---
Test Reason : Blood Pressure : */* mmHG Vent. Rate : 174 BPM Atrial Rate : * BPM P-R Int : * ms QRS Dur : 142 ms QT Int : 306 ms P-R-T Axes : * 32 207 degrees QTcB Int : 520 ms Atrial fibrillation with rapid ventricular response with premature ventricular or aberrantly conducte d complexes Left bundle branch block Abnormal ECG When compared with ECG of 09-Aug-2024 16:13, No significant change was found Confirmed by Pascual Kaur ([id number]) on 08/10/2024 8:45:31 PM Referred By: REFERRED SELF Confirmed By: Pascual Kaur
--- NOTE | 2024-08-10 20:45 | Electrocardiogram Report ---
Test Reason : Blood Pressure : */* mmHG Vent. Rate : 189 BPM Atrial Rate : * BPM P-R Int : * ms QRS Dur : 136 ms QT Int : 272 ms P-R-T Axes : * 33 208 degrees QTcB Int : 482 ms Atrial fibrillation with rapid ventricular response Left bundle branch block Abnormal ECG When compared with ECG of 23-May-2012 20:07, Atrial fibrillation has replaced Sinus rhythm Left bundle branch block is now Present Confirmed by Pascual Kaur ([id number]) on 08/10/2024 8:45:05 PM Referred By: REFERRED SELF Confirmed By: Pascual Kaur
--- NOTE | 2024-08-10 20:46 | Electrocardiogram Report ---
Test Reason : Blood Pressure : */* mmHG Vent. Rate : 145 BPM Atrial Rate : 166 BPM P-R Int : * ms QRS Dur : 154 ms QT Int : 358 ms P-R-T Axes : * 8 192 degrees QTcB Int : 556 ms Atrial fibrillation with rapid ventricular response with premature ventricular or aberrantly conducte d complexes Left bundle branch block Abnormal ECG When compared with ECG of 09-Aug-2024 16:48, No significant change was found Confirmed by Pascual Kaur ([id number]) on 08/10/2024 8:45:53 PM Referred By: REFERRED SELF Confirmed By: Pascual Kaur
--- NOTE | 2024-08-10 20:48 | Electrocardiogram Report ---
Test Reason : Blood Pressure : */* mmHG Vent. Rate : 98 BPM Atrial Rate : 98 BPM P-R Int : 122 ms QRS Dur : 130 ms QT Int : 394 ms P-R-T Axes : 43 1 89 degrees QTcB Int : 503 ms Normal sinus rhythm Ventricular pre-excitation Abnormal ECG When compared with ECG of 09-Aug-2024 21:49, Sinus rhythm has replaced Atrial fibrillation Confirmed by Pascual Kaur ([id number]) on 08/10/2024 8:48:16 PM Referred By: REFERRED SELF Confirmed By: Pascual Kaur
== END 2024-08-10 17:27 | disposition home or self-care (01) | DRG 310 ==
LOC: ED 16:02 → 1E 19:50 → SUATTDRO 19:50 → 1E 20:58
DX: F10.10 Alcohol abuse, uncomplicated; F17.210 Nicotine dependence, cigarettes, uncomplicated; I10 Essential (primary) hypertension; R07.89 Other chest pain; J44.9 Chronic obstructive pulmonary disease, unspecified; I48.91 Unspecified atrial fibrillation; Z88.6 Allergy status to analgesic agent; Z79.899 Other long term (current) drug therapy; I45.6 Pre-excitation syndrome